=== PATIENT | male | born 1950 | race Caucasian/White ===

== ENCOUNTER → 2017-08-01 11:33 | Outpatient (CLI) | payer OTHER, MEDICARE, SELFPAY ==
--- NOTE | 2017-08-01 11:52 | CT_ITS ---
STUDY: CT ABDOMEN AND PELVIS WITH CONTRAST REASON FOR EXAM: Male, 67 years old. 1 1/2 week history of upper abdominal pain. RADIATION DOSAGE (If Supplied By Facility): CTDIvol = ( 10.62 ) mGy, DLP = ( 717.61 ) mGycm TECHNIQUE: Transaxial images were obtained from the dome of the diaphragm to the symphysis pubis with oral contrast. 100 ml of Isovue 300 contrast was administered. Sagittal and coronal images were reconstructed. Individualized dose optimization techniques were used for this CT. COMPARISON: None. FINDINGS: The visualized lung bases are unremarkable. Coronary artery calcification. Normal liver. Normal gallbladder and extrahepatic biliary system. Normal spleen. There is atrophy of the pancreas. Increased markings are seen within the peripancreatic fat. This is suggestive of mild degree of pancreatitis. No abnormal fluid collection is seen. Normal bilateral adrenal glands. Normal right kidney. Normal left kidney. Normal visualized stomach. Normal small intestine. There are multiple colonic diverticula consistent with diverticulosis. The appendix is visualized and appears normal. There is diffuse atherosclerotic calcification of the abdominal aorta, without a demonstrated aneurysm. Normal inferior vena cava. Normal retroperitoneum. Mild degree of bladder wall thickening. There is a small umbilical hernia containing fat. There are diffuse degenerative changes of the visualized lumbar spine. CT/Abdomen/Pelvis WITH Contrast IMPRESSION: Atrophy of the pancreas with increased peripancreatic markings suggestive of a mild degree of uncomplicated pancreatitis. Electronically Signed: Richard Wilkinson MD at 13:54 EDT Tel [phone], Service support ,
[2017-08-01] MEDS: MethylPREDNISolone 125 MG/2 ML Vial 60 MG IV (12:09)
[2017-08-01 12:26] LABS: CREATININE FINGERSTICK 0.9 mg/dL (0.70-1.30)
== END ==
PROVIDERS: Family Provider Family Medicine; PCP Family Medicine; Visit Provider Family Medicine
DX: R10.10 Upper abdominal pain, unspecified (principal)
CPT/HCPCS: 74177; Q9967; A4216

== ENCOUNTER → 2017-08-02 09:05 | Outpatient (CLI) | payer OTHER, MEDICARE, SELFPAY ==
[2017-08-02 09:53] LABS: Absolute Lymphocyte Count 0.99 X10^3/ul (0.83-4.51); Absolute Neutrophil Count 13.7 X10^3/uL (2.0-7.7); Basophil# 0.01 X10^3/uL; Basophil% 0.1 % (0-1); Hematocrit 38.6 % (40-54); Hemoglobin 13.1 g/dl (13.0-16.5); Lymphocyte # 0.99 X10^3/ul (4.0); Lymphocyte % 6.2 % (19-41); Mean Corp Hgb Conc 33.9 g/gl (32-36); Mean Corpuscular Hgb 31.9 pg (27.0-32.0); Mean Corpuscular Volume 93.9 fL (80-94); Mean Platelet Vol. 9.6 fl (6.2-12.0); Monocyte% 7.5 % (0-10); Neutrophil # 13.67 X10^3/uL (2.7-7.7); Neutrophil % 85.9 % (47-70); Platelet Count 297 K/mm3 (150-450); RBC Distribution Width CV 12.1 % (11.6-14.6); RBC Distribution Width SD 40.7 fl (35.1-43.9); Red Blood Count 4.11 M/mm3 (4.6-6.2); White Blood Count 15.9 K/mm3 (4.4-11.0)
[2017-08-02 09:54] LABS: POSITIVE COUNT NO; POSITIVE DIFFERENTIAL NO; POSITIVE MORPHOLOGY NO
[2017-08-02 10:10] LABS: ALB/GLOB Ratio 0.8 RATIO (0.9-2.4); AST(SGOT) 28 U/L (15-37); Alanine Aminotransfer ALT/SGPT 32 U/L (16-61); Albumin, Serum 3.5 g/dL (3.2-5.0); Alkaline Phosphatase 151 U/L (45-117); Amylase 54 U/L (25-115); Anion Gap 12 (5-15); BUN 13 mg/dL (7-18); BUN/Creat Ratio 12.9 RATIO (10-20); Calcium,Total 9.1 mg/dL (8.5-10.1); Chloride 104 mmol/L (98-107); Creatinine, Serum 1.01 mg/dL (0.70-1.30); EST Glomerular Filtration Rate 78 mL/min (>60); Est Glom Filt Rate - Afr Amer 95 mL/min (>60); Globulin 4.4 g/dL (2.2-4.2); Glucose 181 mg/dL (74-106); Lipase 133 U/L (73-393); Protein, Total 7.9 g/dL (6.4-8.2); Sodium Level 138 mmol/L (136-145)
== END ==
PROVIDERS: Family Provider Family Medicine; PCP Family Medicine; Visit Provider Family Medicine
DX: R10.10 Upper abdominal pain, unspecified (principal)
CPT/HCPCS: 36415; 80053; 82150; 83690; 85025

== ENCOUNTER → 2017-09-01 08:33 | Outpatient (CLI) | payer OTHER, MEDICARE, SELFPAY ==
[2017-09-01 10:54] LABS: Hemoglobin A1c 6.9 % (4.2-6.3)
[2017-09-01 11:08] LABS: Cholesterol 170 mg/dL (200); Glucose 115 mg/dL (74-106); High Density Lipoprotein 48 mg/dL; Triglycerides 208 mg/dL; Very Low Density Lipoprotein 42 mg/dL (5-40)
== END ==
PROVIDERS: Family Provider Family Medicine; PCP Family Medicine; Visit Provider Family Medicine
DX: E78.00 Pure hypercholesterolemia, unspecified (principal); R73.01 Impaired fasting glucose
CPT/HCPCS: 36415; 80061; 82947; 83036

== ENCOUNTER → 2017-12-04 10:31 | Outpatient (CLI) | payer OTHER, MEDICARE, SELFPAY ==
[2017-12-04 12:24] LABS: Vitamin D,25 Hydroxy 38.3 ng/mL (29.95-100.01)
[2017-12-04 12:38] LABS: Hemoglobin A1c 6.1 % (4.2-6.3)
[2017-12-04 12:41] LABS: Anion Gap 8 (5-15); BUN 10 mg/dL (7-18); BUN/Creat Ratio 10.5 RATIO (10-20); Calcium,Total 9.8 mg/dL (8.5-10.1); Chloride 105 mmol/L (98-107); Creatinine, Serum 0.96 mg/dL (0.70-1.30); EST Glomerular Filtration Rate 83 mL/min (>60); Est Glom Filt Rate - Afr Amer 101 mL/min (>60); Glucose 119 mg/dL (74-106); Potassium 4.2 mmol/L (3.5-5.1); Sodium Level 141 mmol/L (136-145); Thyroid Stim Hormone (TSH) 1.27 uIU/mL (0.358-3.74)
== END ==
PROVIDERS: Family Provider Family Medicine; PCP Family Medicine; Visit Provider Family Medicine
DX: R73.01 Impaired fasting glucose (principal); I10 Essential (primary) hypertension; M25.50 Pain in unspecified joint
CPT/HCPCS: 36415; 80048; 82306; 83036; 84443

== ENCOUNTER → 2018-06-18 09:42 | Outpatient (CLI) | payer OTHER, MEDICARE, SELFPAY ==
[2018-06-18 12:57] LABS: Anion Gap 6 (5-15); BUN 11 mg/dL (7-18); BUN/Creat Ratio 12.1 RATIO (10-20); Calcium,Total 9.2 mg/dL (8.5-10.1); Chloride 105 mmol/L (98-107); Creatinine, Serum 0.91 mg/dL (0.70-1.30); EST Glomerular Filtration Rate 88 mL/min (>60); Est Glom Filt Rate - Afr Amer 106 mL/min (>60); Glucose 121 mg/dL (74-106); Potassium 3.9 mmol/L (3.5-5.1); Sodium Level 139 mmol/L (136-145)
== END ==
PROVIDERS: Family Provider Family Medicine; PCP Family Medicine; Referring Provider Family Medicine; Visit Provider Family Medicine
DX: I10 Essential (primary) hypertension (principal)
CPT/HCPCS: 36415; 80048

== ENCOUNTER → 2019-03-06 08:51 | Outpatient (CLI) | payer OTHER, MEDICARE, SELFPAY ==
--- NOTE | 2019-03-06 09:19 | BD_ITS ---
STUDY: DUAL ENERGY X-RAY ABSORPTIOMETRY / DXA REASON FOR EXAM: Male, 69 years old. History of osteogenesis imperfecta. Loss of height. TECHNIQUE: Bone Mineral Density (BMD) measurements of lumbar spine and bilateral hips were obtained. COMPARISON: None. FINDINGS: Lumbar Spine (L1-L4): g/cm2 (1.369) / T-score (1.4) / Z-score (1.9) Findings are suggestive of normal bone density with a low fracture risk. Left Femur Total: g/cm2 (0.960) / T-score (-1.0) / Z-score (-0.3) Left Femoral Neck: g/cm2 (0.849) / T-score (-1.7) / Z-score (-0.5) Right Femur Total: g/cm2 (0.948) / T-score (-1.1) / Z-score (-0.4) Right Femoral Neck: g/cm2 (0.886) / T-score (-1.4) / Z-score (-0.2) BD/Dexa Bone Density Study IMPRESSION: The patient is considered osteopenic as outlined below according to World Brian Organization (WHO) criteria with a moderate fracture risk. Reference Information: The T-score is the number of standard deviations above or below the standard which is normal for young adults at their peak bone mineral density. The World Health Organization (WHO) interprets the T-scores as follows: Above -1 Normal bone density Between -1 and -2.5 Osteopenia Equal to / or below -2.5 Osteoporosis As a practical clinical guideline, osteopenia may be graded as follows: Mild -1 through -1.5 Moderate -1.6 through -2.0 Severe -2.1 through -2.4 The Z-score is the number of standard deviations above or below age-matched controls. A Z-score of less than -1.5 would be considered abnormal. References: 1. NIH Osteoporosis and Related Bone Diseases http://www.osteo.org 2. International Society for Clinical Densitometry http://www.iscd.org 3. National Osteoporosis Foundation http://www.nof.org Electronically Signed: Richard Wilkinson, at 9:18 EST , Service support ,
== END ==
PROVIDERS: Family Provider Family Medicine; PCP Family Medicine; Referring Provider Family Medicine; Visit Provider Family Medicine
DX: Q78.0 Osteogenesis imperfecta (principal)
CPT/HCPCS: 77080

== ENCOUNTER → 2019-04-11 10:05 | Outpatient (CLI) | payer OTHER, MEDICARE, SELFPAY ==
[2019-04-11 12:26] LABS: Erythrocyte Sedimentation Rate 18 mm/hr (0-20)
[2019-04-11 13:08] LABS: BUN 11 mg/dL (7-18); EST Glomerular Filtration Rate 89 mL/min (>60); Glucose 125 mg/dL (74-106)
[2019-04-11 13:09] LABS: Anion Gap 9 (5-15); BUN/Creat Ratio 12.2 RATIO (10-20); Calcium,Total 9.3 mg/dL (8.5-10.1); Chloride 106 mmol/L (98-107); Est Glom Filt Rate - Afr Amer 108 mL/min (>60); Potassium 3.9 mmol/L (3.5-5.1); Rheumatoid Factor < 10.0 IU/mL (<15); Sodium Level 140 mmol/L (136-145)
[2019-04-12 13:33] LABS: ANTINUCLEAR ANTIBODIES DIRECT Negative (Negative)
[2019-04-12 17:45] LABS: Hemoglobin A1c 6.5 % (4.2-6.3)
== END ==
PROVIDERS: Family Provider Family Medicine; PCP Family Medicine; Visit Provider Family Medicine
DX: I10 Essential (primary) hypertension (principal); M19.90 Unspecified osteoarthritis, unspecified site
CPT/HCPCS: 36415; 80048; 83036; 85652; 86038; 86140; 86431

== ENCOUNTER → 2019-04-19 07:43 | Outpatient (CLI) | payer OTHER, SELFPAY ==
--- NOTE | 2019-04-19 07:47 | ECHOD_ITS ---
Version 2 Reason For Study: Murmur Procedure This was a 2D Doppler, Color Flow transthoracic echocardiogram. Exam performed in department. Left Ventricle Normal LV size. Mild concentric left ventricular hypertrophy. Left ventricular systolic function is normal. The estimated ejection fraction is 65 %. Stage 1 diastolic dysfunction. LVOT dynamic gradient 100mmhg with valsalva m/sec. No regional wall motion abnormalities noted. Right Ventricle Normal RV size. Normal systolic function. Atria Normal left atrium. Normal right atrium. Mitral Valve Normal mitral valve. Tricuspid Valve Normal tricuspid valve. Mild (1+) tricuspid valve insufficiency. Pulmonary artery systolic pressure is 35 mmHg. Aortic Valve Normal aortic valve. Pulmonic Valve Normal pulmonic valve. Great Vessels Normal aortic root. The pulmonary artery is normal size. Normal inferior vena cava. Pericardium/Pleural No pericardial effusion. MMode/2D Measurements & Calculations LVIDd: 4.0 cm IVSd: 1.2 cm LVOT diam: 1.9 cm LVIDs: 2.5 cm LVPWd: 1.3 cm LVOT area: 2.8 cm2 RVDd: 3.2 cm FS: 36.9 % Ao root diam: 3.0 cm LAV(MOD-bp): 46.1 ml LVAd ap4: 26.2 cm2 LAV(MOD-bp) Indexed: 25.7 ml/m2 EDV(MOD-sp4): 73.0 ml LAV(MOD-sp2): 46.2 ml EDV(sp4-el): 74.5 ml LAV(MOD-sp4): 44.4 ml LVAs ap4: 13.1 cm2 ESV(MOD-sp4): 22.9 ml ESV(sp4-el): 23.5 ml EF(MOD-sp4): 68.6 % EF(sp4-el): 68.5 % SV(MOD-sp4): 50.1 ml SV(sp4-el): 51.0 ml LA A4 area: 16.1 cm2 LA dimension(2D): 3.5 cm RA A4 area: 14.5 cm2 Doppler Measurements & Calculations MV E max richie: 83.8 cm/sec Lat Peak E' Richie: 9.5 cm/sec Med Peak E' Richie: 6.5 cm/sec MV A max richie: 112.1 cm/sec E/E' lat: 8.8 E/E' med: 13.0 MV E/A: 0.75 Ao V2 max: 220.3 cm/sec LV V1 max: 189.2 cm/sec SV(LVOT): 111.6 ml Ao max P.4 mmHg LV V1 max P.3 mmHg Ao V2 mean: 147.2 cm/sec LV V1 mean P.5 mmHg Ao mean P.8 mmHg LV V1 mean: 127.1 cm/sec Ao V2 VTI: 41.7 cm LV V1 VTI: 40.2 cm VITA(I,D): 2.7 cm2 VITA(V,D): 2.4 cm2 PA V2 max: 126.8 cm/sec TR max richie: 270.1 cm/sec TR max P.2 mmHg Interpretation Summary Normal LV size. Mild concentric left ventricular hypertrophy. Left ventricular systolic function is normal. The estimated ejection fraction is 65 %. Stage 1 diastolic dysfunction. LVOT dynamic gradient 100mmhg with valsalva. Ordering Physician: Jeff Worley Referring Physician: Jeff Worley Performed By: Kusum Joya, SYD, RVT
== END ==
PROVIDERS: Family Provider Family Medicine; PCP Family Medicine; Referring Provider Family Medicine; Visit Provider Family Medicine
DX: R01.1 Cardiac murmur, unspecified (principal)
CPT/HCPCS: 93306

== ENCOUNTER → 2019-09-30 10:46 | Outpatient (CLI) | payer OTHER, SELFPAY ==
--- NOTE | 2019-09-30 10:52 | RAD_ITS ---
STUDY: X-RAY - LEFT KNEE REASON FOR EXAM: Male, 69 years old. LEFT KNEE PAIN TECHNIQUE: 4 view(s) of the knee. COMPARISON: Comparison is made with prior examination dated May 15, 2011. FINDINGS: Normal visualized distal femur. Normal visualized proximal tibia and fibula. Normal proximal tibiofibular articulation. There is moderate degenerative arthrosis of the medial femorotibial compartment with moderate joint space narrowing. Normal lateral femorotibial compartment. There is mild degenerative arthrosis of the patellofemoral articulation. There now is evidence of soft tissue ossification in the soft tissues overlying the medial aspect of the distal femoral metaphysis in the suprapatellar region. This may represent myositis ossificans. RAD/Knee 4 or More Views IMPRESSION: Degenerative arthrosis. This has progressed as compared to prior study. Findings suggestive of myositis ossificans. Electronically Signed: Richard Wilkinson, at 12:53 EDT , Service support ,
== END ==
PROVIDERS: PCP Family Medicine; Referring Provider Family Medicine; Visit Provider Family Medicine
DX: M25.562 Pain in left knee (principal)
CPT/HCPCS: 73564

== ENCOUNTER → 2019-10-02 08:44 | Outpatient (CLI) | payer MEDICARE, OTHER, SELFPAY ==
[2019-10-02 10:35] LABS: Anion Gap 7 (5-15); BUN 10 mg/dL (7-18); BUN/Creat Ratio 12.8 RATIO (10-20); Calcium,Total 9.3 mg/dL (8.5-10.1); Chloride 108 mmol/L (98-107); Cholesterol 162 mg/dL (200); Creatinine, Serum 0.78 mg/dL (0.70-1.30); EST Glomerular Filtration Rate 104 mL/min (>60); Est Glom Filt Rate - Afr Amer 126 mL/min (>60); Glucose 100 mg/dL (74-106); High Density Lipoprotein 70 mg/dL; Potassium 4.1 mmol/L (3.5-5.1); Sodium Level 142 mmol/L (136-145); Triglycerides 89 mg/dL; Very Low Density Lipoprotein 18 mg/dL (5-40)
== END ==
PROVIDERS: PCP Family Medicine; Referring Provider Family Medicine; Visit Provider Family Medicine
DX: I10 Essential (primary) hypertension (principal)
CPT/HCPCS: 36415; 80048; 80061

== ENCOUNTER → 2020-01-01 12:29 | Outpatient (CLI) | payer MEDICARE, OTHER, SELFPAY ==
--- NOTE | 2020-01-01 12:31 | CT_ITS ---
STUDY: CT SCAN LOWER EXTREMITY LEFT REASON FOR EXAM: Male, 69 years old. Left knee varus deformity URBANO protocol. RADIATION DOSAGE (If Supplied By Facility): CTDIvol = ( 18.76 ) mGy, DLP = ( 1135.33 ) mGycm. Individualized dose optimization techniques were used for this CT.? TECHNIQUE: Multiple axial tomographic images of the left hip joint, knee joint and ankle joint were obtained. Coronal and sagittal constructions was obtained as well. COMPARISON: Comparison is made with prior radiograph of the left knee dated 09/30/2019. FINDINGS: Imaging of the left hip joint is unremarkable. There is good alignment. No significant joint space narrowing is seen. Minimal degree of the joint space narrowing involving the medial compartment of the knee joint. Small joint effusion. Dense ossification of the anterior soft tissues suggestive of dermatomyositis. Imaging of the ankle joint was obtained. No significant abnormality is seen. CT/Extremity Lower without Contra IMPRESSION: Mild degree of joint space narrowing involving the medial compartment of the knee joint. Findings suggestive of a myositis ossificans in the soft tissues overlying the medial aspect of the knee joint. Electronically Signed: Richard Wilkinson, at 13:16 EDT , Service support ,
== END ==
PROVIDERS: PCP Family Medicine; Referring Provider Specialist; Visit Provider Specialist
DX: M21.162 Varus deformity, not elsewhere classified, left knee (principal)
CPT/HCPCS: 73700

== ENCOUNTER 2020-01-22 05:31 | Day surgery (SDC) | payer MEDICARE, OTHER, SELFPAY ==
[2020-01-01 13:00] LABS: Absolute Lymphocyte Count 1.72 X10^3/uL (0.83-4.51); Basophil# 0.05 X10^3/uL; Basophil% 0.4 % (0-1); Eosinophil# 0.51 X10^3/uL; Eosinophils% 4.5 % (0-5); Hematocrit 42.9 % (40-54); Hemoglobin 14.3 g/dL (13.0-16.5); Lymphocyte # 1.72 X10^3/ul (4.0); Lymphocyte % 15.3 % (19-41); Mean Corp Hgb Conc 33.3 g/dL (32-36); Mean Corpuscular Hgb 31.6 pg (27.0-32.0); Mean Corpuscular Volume 94.9 fL (80-94); Mean Platelet Vol. 9.7 fl (6.2-12.0); Monocyte# 0.97 X10^3/uL; Monocyte% 8.6 % (0-10); NRBC Flagged by Analyzer 0 % (0-5); Neutrophil # 7.97 X10^3/uL (2.7-7.7); Neutrophil % 70.8 % (47-70); Platelet Count 303 K/mm3 (150-450); RBC Distribution Width CV 11.7 % (11.6-14.6); Red Blood Count 4.52 M/mm3 (4.6-6.2); White Blood Count 11.3 K/mm3 (4.4-11.0)
[2020-01-01 13:25] LABS: Anion Gap 8 (5-15); BUN 9 mg/dL (7-18); BUN/Creat Ratio 11.4 RATIO (10-20); Calcium,Total 9.6 mg/dL (8.5-10.1); Chloride 104 mmol/L (98-107); Creatinine, Serum 0.79 mg/dL (0.70-1.30); EST Glomerular Filtration Rate 103 mL/min (>60); Est Glom Filt Rate - Afr Amer 125 mL/min (>60); Glucose 131 mg/dL (74-106); Potassium 3.9 mmol/L (3.5-5.1); Sodium Level 138 mmol/L (136-145)
--- NOTE | 2020-01-01 22:02 | HP.PCM_ITS ---
History and Physical History and Physical [facility] Patient Name: Yasir Montiel : 1950 From: MARQUIS MARIA PA-C DATE OF SURGERY: 01/22/2020 SCHEDULED PROCEDURE: left total knee arthroplasty HISTORY OF PRESENT ILLNESS: Preoperative history and physical exam was performed on January 01, 2020. This is a 69-year-old male who is been having ongoing pain for the past 6 months. His pain can reach 6/10 with activities. His pain as being constant. Pain is increased with going up and down stairs, sitting, walking. He has pain over the medial joint line. Pain does not wake him at night. Patient has fallen due to his knee pain. Patient has attempted home exercises as well as [id number] Aleve and tramadol with minimal relief. He had a previous corticosteroid injection which only gave him 2 days of relief. Patient has also attempted durolane injection with no relief in symptoms. He has attempted bracing with no relief in symptoms. Patient has had a previous left quadriceps tendon repair by Dr. Darin Ba patient currently denies any chest pain, shortness of breath, fevers chills, recent infections. Patient has a medical history pertinent for osteogenesis imperfecta, hypercholesterolemia and hypertension. We are obtaining surgical clearance from his primary care physician Dr. Worley. After failing conservative measures and discussing treatment options with Dr. Brooks Longoria, the patient does wish to proceed with a left total knee arthroplasty. REVIEW OF SYSTEMS: ROS: Const: Denies anorexia, anxiety, change in appetite, fever and weight change,hard of hearing, and vision problems. CV: Denies chest pain, heart murmur, irregular heartbeat and peripheral vascular disease. Resp: Denies asthma, cough, pneumonia, sleep apnea, SOB, tuberculosis and wheezing. GI: Reports heartburn, but denies constipation, diarrhea, nausea, bloody stools and vomiting, and difficulty swallowing. : Urinary: denies incontinence. Musculo: Reports leg swelling, limp and trouble walking, but denies weakness. Skin: Reports tattoo, but denies Raynaud's and history of shingles. Neuro: Denies ambulatory dysfunction, dizziness, numbness/tingling and tremor. Psych: Denies anxiety, depression, insomnia, mental illness and stress. [place]/Lymph: Denies anemia, bleeding/bruising tendency and past transfusion. Reviewed, no changes. PAST MEDICAL HISTORY: Advance Care Plan: Other Directive, LIVING WILL Effective Date: 01/09/2015 PMH: Medical Problems: Osteogenesis Imperfecta Heart Murmur - NOTED IN THE PAST Hypercholesterolemia, High Blood Pressure Accidents: Fracture - 40-45 fx over life, collarbone; ribs; wrist 5x; rest fingers & toes Surgical Hx: Laminectomy - 12 years [facility] Microdiscectomy l4-l5 LT Quadriceps Repair - (05/19/2011) [email or web address] RT CTR - (05/10/2012) EDGAR @ [facility] Knee Arthroscopy RT - (01/01/2015) [email or web address] Knee Replacement RT - (06/04/2015) [email or web address] Anesthesia Complications: None Assistive Devices: Glasses - reading Reviewed, no changes. SOCIAL HISTORY: SH: Marital: .Occupation: Retired.Work Status: Retired.Hand Dominance: Right- Handed. Personal Habits: Smoking: Patient has never smoked.Cigarette Use: Never.Alcohol: Occasionally.Drug Use: Denies Use.Enjoy Exercising: Exercises 1-3 x/month. Reviewed, no changes. VITALS: Ht: 63 Wt: 157lb Wt k.215 BMI: 27.8 BP: 173/85 Pulse: 86 Resp: 18 T: 97.2 T: 36.2C ALLERGIES: Iodine MEDICATIONS: Oxycodone HCL 5 mg 1-2 tab by mouth every 4 hours, Meloxicam 7.5 mg 2 tablets by mouth in pre-op area, Promethazine HCL 12.5 mg 1-2 tablets by mouth every 6 hours, Famotidine 20 mg 1 by mouth every day, Trazodone HCL 2-3 times weekly, Losartan Potassium 25 mg 1 by mouth every day, Atorvastatin Calcium 20 mg 1po qday PRE-OP EXAM: General appearance:NORMAL Other: Eyes: Conjunctivae and lids: NORMAL Pupils: ERR Ears, Nose, Mouth, and Throat: NORMAL Other: Inspection of lips, teeth and gums: NORMAL Other: Neck: Examination of neck: no masses noted. Respiratory: Assessment of respiratory effort: NORMAL Other: Auscultation of lungs: clear to auscultation no wheezes, rhonchi or rales. Cardiovascular: Auscultation of heart: regular rate and rhythm, positive systolic murmur Exam of carotid arteries: NORMAL Other: Gastrointestinal: Exam of abdomen: soft, nontender, nondistended bowel sounds present. PHYSICAL EXAMINATION: She does walk with an antalgic gait. Left knee is cool to touch without edema or signs of infection. Previous incision from a quadriceps repair is well- healed. Range of motion: Lacks 10 of full extension to 125 flexion. He has varus alignment which is correctable on exam. There is varus to palpation over the medial joint line. He has tenderness to palpation over the quadriceps at the proximal insertion. Negative patella compression exam. Sensation intact to light touch. IMAGING STUDIES: Previous x-rays of the left knee reveal varus alignment with medial joint space narrowing, subchondral sclerosis, osteophyte formation consistent with grade 3-4 osteoarthritis. There is calcifications of the proximal quadriceps tendon at the site of repair. IMPRESSION: 1. Left knee osteoarthritis 2. Previous left knee quadriceps repair 2011 3. Hypertension 4. Osteogenesis imperfecta 5. Hypercholesterolemia PLAN: Dr. Brooks Longoria did discuss and review with the patient all treatment options including surgical versus nonsurgical options. Patient does wish to proceed with the above-stated procedure. Potential risks, benefits, and complications of the procedure were discussed in detail including but not limited to , infection, nerve and blood vessel damage, persistent pain, numbness, tingling, paresthesias, blood clot, pulmonary embolism, and requirement for possible further surgery. The patient expressed full understanding and has no further questions for the doctor. Patient does agree to proceed with the above-stated procedure and has signed the surgery consent form. We discussed the current risks associated with COVID 19. This does include the risk of exposure while in the hospital. Patient was reassured local hospitals have low infection rates and are taking all necessary precautions to avoid exposure to patients. In addition, we discussed strategies that can be used to help limit exposure including those that limit the patient's time in the hospital. Also using strategies to limit the patient's need for continued inpatient services after being discharged from the hospital. Patient was notified that we will need to comply with any screening or testing the hospital wishes to perform or that surgery may be delayed for any positive results. This dictation was created using voice recognition software. Phonetic and/or grammatical errors may exist. ___ I have re-examined the patient. There are no clinical changes since date of exam. ___ See progress notes for changes. ___ Dictated on admission Date: Time: Signature:
[2020-01-02 09:32] LABS: Magnesium 1.9 mg/dL (1.6-2.6)
--- NOTE | 2020-01-15 09:47 | EKG12_ITS ---
Test Reason : PRE OP Blood Pressure : / mmHG Vent. Rate : 092 BPM Atrial Rate : 092 BPM P-R Int : 168 ms QRS Dur : 086 ms QT Int : 368 ms P-R-T Axes : 062 055 065 degrees QTc Int : 455 ms Normal sinus rhythm Normal ECG Confirmed by HAYES MAYER, ROYAL ([id number]), food editor JOLANTA WISE ([id number]) on 01/16/2020 8:14:21 AM Referred By: Brooks Longoria Confirmed By:ROYAL KOO MD
[2020-01-22] VITALS (10 sets, daily range): BP systolic 75–139; BP diastolic 45–68; PULSE 71–89; RESP 14–18; TEMP 36.4–37.4; O2SAT 16–100; BMI 25.2
[2020-01-22 06:15] LABS: Bedside Glucose 226 mg/dL (70-110)
[2020-01-22] MEDS: Insulin Lispro 100 UNIT/ML INSULN.PEN SC (06:22)
[2020-01-22] MEDS: Scopolamine 1mg/72hr Patch 1 PATCH TRANSDERM. (06:24)
[2020-01-22] MEDS: Lactated Ringers 1,000 ML 999 ML IV ×2 (06:28→10:14)
[2020-01-22] MEDS: Gabapentin 600 MG Tablet PO (06:29)
[2020-01-22] MEDS: Celecoxib 200 MG Capsule 400 MG PO (06:29)
[2020-01-22] MEDS: Acetaminophen 500 MG Tablet 1000 MG PO (06:29)
[2020-01-22] MEDS: Cefazolin 2 GM in 0.9% Normal Saline 100 ML IV (07:22)
--- NOTE | 2020-01-22 07:30 | KNEE_PTH ---
PATIENT: ANITA VIEYRA LOC: [facility] [place] U#:[id number] AGE/SX: 70/M ROOM: RE01/22/[address]: Dr. Brooks Longoria MD : 1950 BED: DIS: 01/22/2020 SPEC #: [id number] RECD: 01/22/20 10:30 STATUS: LOCO MORENA #: [id number] ANNEMARIE: 01/22/20 07:[address]: Brooks Longoria DEPT: SURGICAL PATHOLOGY RECD BY: Kip Gonzalez ENTERED: 01/22/20 11:07 SP TYPE: TOTAL KNEE OTHR DR: MD Iker Bhat PA-C Tissues: Knee, NOS Procedures: Decalcification bone/plaque Surgery Specimen Level IV HEADER OPERATION: ERAS, total knee replacement robotic arm assist PRE-OP DIAGNOSIS: Left knee osteoarthritis TISSUE SUBMITTED: Left knee ossicle MICROSCOPIC DIAGNOSIS Left knee ossicle, excision: Osseocartilaginous tissue consistent with ossicle. AM:macey 01/27/20 MICROSCOPIC DESCRIPTION Slides are reviewed. GROSS DESCRIPTION Received in fixative is one container labeled with the patient's name and designated left knee ossicle. The specimen consists of an irregular fragment of light bui bone measuring 4.4 x 2.2 x 1 cm. Hat Blocking Machine Operator sections are submitted in one cassette after decalcification. / AM:macey 01/22/20 TC:5 CPT: 88042, 12056
[2020-01-22] MEDS: dexAMETHasone 10 MG/ML Vial IV (07:51)
[2020-01-22] MEDS: Lactated Ringers 1,000 ML 125 ML IV (08:30)
--- NOTE | 2020-01-22 08:57 | OP.PCM_ITS ---
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 Left robotic assisted minimally invasive total knee replacement. 2. Left knee excision of bony ossicle 2 cm x 4 cm Description of Surgical Findings:: Stable knee with good patella tracking In the medial supra patellar tissues there was a 2 cm x 4 cm bony ossicle that was completely excised. print project manager: Izzy Eduardo Type of Anesthesia:: Spinal Anesthesiologist: Mack Snyder Special Medications: 2 g Ancef, 1 g TXA at incision, 1 g TXA closure, 10 mg Decadron, joint cocktail (5 mg Duramorph, 30 mL of 0.5% Ropivicaine, 1000 units of epinephrine, 30 mg of Toradol) Specimen's removed: Bony cuts, bony ossicle Estimated Blood Loss (mL): 75 Fluids Replaced: 1400 mL crystalloid Description of Procedure: Implants used: 1. Gretta size 3 triathlon cruciate retaining distal femoral press-fit component 2. Gretta size 4 press-fit tritanium tibial baseplate 3. Gretta X3 10 mm CS polyethylene 4. [place] X3 32 mm asymmetric patella Brief history operative indications: 70-year-old m with history of left knee osteoarthritis with radiographic findings with loss of joint space, osteophyte formation and subchondral sclerosis. Failed conservative measures as mentioned in the H&P. Discussion of total knee arthroplasty as well as risk and benefits were discussed the patient including but not limited to blood loss, DVTs, PEs, neurovascular damage, general risk of anesthesia including loss of life, and stiffness or instability were discussed with patient. Patient demonstrated understanding and was able to sign informed consent. Procedure: On the date of procedure patient's left lower extremity was marked in the preoperative area. The patient was then taken back to the operating room where the patient was placed on the table in the supine position. All bony prominences were identified a well-padded. Anesthesia assumed control of the C-spine and airway and remained controlled throughout the remainder of the procedure. A tourniquet was placed on the left upper thigh and the leg was prepped in a sterile fashion. The surgeon then scrubbed at this time .Upon reentering the room left lower extremity was draped in a standard orthopedic fashion. A timeout was then called and everyone agreed upon the side, the site, the procedure to be performed, patient's identity and antibiotics given. Esmarch bandage was used to exsanguinate the extremity and the tourniquet was placed up to 250 mmHg with the knee in flexion. A midline skin incision was made and sharp dissection was taken down through skin subcutaneous tissue and fat. The standard medial parapatellar incision was made and the patella was subluxed laterally. An Appropriate deep MCL release was done and the fat pad was resected. Our attention was then directed to the patella. The patella was everted and a flat resection was made. The knee was then flexed up in 2 femoral pins were placed inside the incision and 2 tibial pins were placed outside the incision in the medial tibia bicortically. Once this was completed the 2 checkpoints in the femur and tibia were placed. Knee was then flexed up and the bony landmarks were registered. Once this was completed knee was taken through range of motion and manually stressed allowing us to a plan for an appropriate tibial cut. The robotic arm was brought into the field sterilely and checkpoint and saw were registered. Based on the patient's deformity the tibial cut was made in 2 degrees varus. At this time the tensioner was then placed in the joint and ligament tension was checked at 90 degrees and full extension. Based on the patient's ligamentous tension appropriate adjustments were made to the operative plan and ligament releases were done. Once we were happy with our operative plan with balanced flexion and extension gaps our attention was directed to the femur. The robot was brought into the field sterilely and registered. Posterior condylar cuts, anterior chamfer cuts and anterior cuts were appropriately made for a size 3 femur. When these were completed the saws were switched out in the distal femoral and posterior chamfer cuts were made. Protecting the soft tissue throughout this time. A size 4 tibial base plate was selected. the knee was flexed to 90 degrees and the soft tissues and posterior osteophytes were removed from the joint. 40 cc of the periarticular injection was injected into the posterior medial corner of the joint. The appropriate trials were then placed on the femur and tibia. A trial polyethylene was trialed to ensure proper balancing and stability of the knee. The appropriate tibial internal rotation was then marked with a bovie. Our attention was then directed to the patella. The lug holes were drilled and the patella trial was placed. Patellar tracking was checked and deemed appropriate. Once we were happy lug holes were drilled for the femur and trial components were removed. the tibia was subluxed and pinned into place and the keel was punched and drilled appropriately. Final components were verified and opened, and cement was mixed in a vacuum. [employer] Simplex cement was used. The wound was copiously irrigated with normal saline. When the cement was ready the components were impacted into place starting with the tibia, femur and finally cementing the patella. The trial poly component was placed and the knee was placed in full extension. All excess cement was removed in the process. Once the cement had cured the tracking, alignment and balance were verified and a size 10 mm CS polyethylene component was placed. The closur e of the bony ossicle was explored. We carefully dissected out of the soft tissue envelope careful not to disrupt the extensor mechanism and retinacular repair. It was 2 cm x 4 cm. Once the final components were placed an Irrisept lavage was performed and the wound was copiously irrigated with normal saline solution and the periarticular injection was given. The wound was closed in a layer castano fashion using #1 vicryl interrupted sutures for the arthrotomy, 2-0 interrupted Vicryl suture for the subcuticular layer and jose for final skin closure. A sterile compressive dressing was then placed. The patient was then awakened from anesthesia, transferred to the [facility] and transferred to the PACU for recovery. Post op plan DVT ppx: ASA 81mg BID, thigh high compression stockings Follow up: in office in 2 weeks for wound check PT: to start POD #0 at hospital, outpatient PT should be arranged. Due to the complexity of this case robotic arm was used to assist in the surgery to improve accuracy and clinical outcomes. - Complications No intraoperative complications - Admit VTE Documentation VTE Present on Admission: No VTE Mechan Device Prophylaxis: SCD's, Thigh High STAR Hose VTE Pharm Prophylaxis ordered?: Yes
[2020-01-22 09:40] LABS: Bedside Glucose 125 mg/dL (70-110)
--- NOTE | 2020-01-22 09:44 | RAD_ITS ---
STUDY: X-RAY - LEFT KNEE REASON FOR EXAM: Postop left total knee arthroplasty. TECHNIQUE: 2 view(s) of the knee. COMPARISON: Radiographs 09/30/2019. FINDINGS: There is a left total knee arthroplasty without evidence of complication. There is postoperative gas in the knee joint and soft tissues. There are overlying skin jose. There are soft tissue ossifications in the suprapatellar region. There are vascular calcifications. RAD/Knee 1 or 2 Views IMPRESSION: Uncomplicated left total knee arthroplasty. Electronically Signed: Tarik Marcelo MD at 10:19 EDT Tel , Service support ,
[2020-01-22] MEDS: Cefazolin 1 GM/50 ML BAG IV (11:30)
[2020-01-22] MEDS: oxyCODONE 5 MG Tablet PO (11:49)
== END 2020-01-22 13:45 | disposition home or self-care (01) ==
LOC: SDC 05:32 → AC 05:32
PROVIDERS: Anesthesiology; PCP Family Medicine; Referring Provider Specialist; Visit Provider Specialist
PROC: 0SRD0JZ Replacement of Left Knee Joint with Synthetic Substitute, Open Approach (ICD-10-PCS; CPT 27447; principal; 2020-01-22 07:00)
DX: M17.32 Unilateral post-traumatic osteoarthritis, left knee (principal); M61.9 Calcification and ossification of muscle, unspecified; Q78.0 Osteogenesis imperfecta; E78.00 Pure hypercholesterolemia, unspecified; I10 Essential (primary) hypertension; Z79.1 Long term (current) use of non-steroidal anti-inflammatories (NSAID); Z79.899 Other long term (current) drug therapy; Z88.8 Allergy status to other drugs, medicaments and biological substances; Z96.652 Presence of left artificial knee joint
CPT/HCPCS: 01402; 27447; 64447; 36415; 73560; 80048; 82962; 83735; 85025; 87081; 87635; 88305; 88311; 93005; 97162; 97166; C1776; C9803; J7120; U0003

== ENCOUNTER → 2020-01-24 11:05 | Outpatient (CLI) | payer MEDICARE, OTHER, SELFPAY ==
[2020-01-22 05:59] VITALS: BMI 25.2
--- NOTE | 2020-01-24 11:09 | VDLE_ITS ---
Reason For Study: PAIN LLE Procedure LEFT This is a venous duplex using B-mode, color GSV is normal. flow and spectral Doppler. CFV is compressible, spontaneous, phasic, Exam performed in department. competent, and demonstrates normal A preliminary report was called and/or faxed augmentation. to Kerry. FV is compressible, spontaneous, phasic, competent and demonstrates normal augmentation. POP V is compressible, spontaneous, phasic, competent and demonstrates normal augmentation. T/P Trunk is compressible. PTV is compressible. LT PerV is compressible. Interpretation Summary Deep veins of the left lower extremity are patent and compressible segmentally. There is no evidence of left lower extremity deep vein thrombosis. Valvular competence appears intact within the proximal deep venous system on the left . The left great saphenous vein appears patent and compressible segmentally. Ordering Physician: Bernabe Payne Referring Physician: Jeff Worley Performed By: Juli Duarte RVT and Student
== END ==
PROVIDERS: PCP Family Medicine; Referring Provider Physician Assistant Surgical; Visit Provider Physician Assistant Surgical
DX: M79.662 Pain in left lower leg (principal)
CPT/HCPCS: 93971

== ENCOUNTER → 2020-01-31 11:00 | Outpatient (CLI) | payer MEDICARE, OTHER, SELFPAY ==
[2020-01-22 05:59] VITALS: BMI 25.2
--- NOTE | 2020-01-31 11:05 | VDLE_ITS ---
Reason For Study: PAIN Procedure LEFT Exam performed in department. GSV is normal. A preliminary report was called and/or faxed CFV is compressible, spontaneous, phasic, to DR LONGORIA. competent, and demonstrates normal augmentation. FV is compressible, spontaneous, phasic, competent and demonstrates normal augmentation. POP V is compressible, spontaneous, phasic, competent and demonstrates normal augmentation. T/P Trunk is compressible. PTV is compressible. LT PerV is compressible. Interpretation Summary Deep veins of the left lower extremity are patent and compressible segmentally. There is no evidence of left lower extremity deep vein thrombosis. Valvular competence appears intact within the proximal deep venous system on the left . The left great saphenous vein appears patent and compressible segmentally. Ordering Physician: Brooks Longoria Referring Physician: BARBARA THOMAS Performed By: Bita Mcmillan, SYD, RVT
== END ==
PROVIDERS: PCP Family Medicine; Referring Provider Specialist; Visit Provider Specialist
DX: M79.662 Pain in left lower leg (principal)
CPT/HCPCS: 93971

== ENCOUNTER → 2020-07-03 13:54 | Outpatient (CLI) | payer MEDICARE, OTHER, SELFPAY ==
[2020-01-22 05:59] VITALS: BMI 25.2
--- NOTE | 2020-07-03 13:57 | RAD_ITS ---
STUDY: X-RAY - LEFT SHOULDER REASON FOR EXAM: Male, 70 years old. Left shoulder pain. TECHNIQUE: 2 view(s) of the shoulder on 4 images. COMPARISON: None. FINDINGS: Generalized osteopenia. Osteoarthrosis of the glenohumeral and acromioclavicular joints. Normal acromion. Sclerosis and cystic change of the greater tuberosity of the humeral head. The soft tissue structures are unremarkable. Normal visualized pulmonary apex. RAD/Shoulder min 2 Views IMPRESSION: Osteopenia with osteoarthritic changes. No acute finding. Electronically Signed: Yasir Herron MD at 15:47 EDT , Service support ,
--- NOTE | 2020-07-03 13:58 | RAD_ITS ---
STUDY: X-RAY - RIGHT SHOULDER REASON FOR EXAM: Male, 70 years old. Shoulder pain. TECHNIQUE: 2 view(s) of the shoulder on 3 images. COMPARISON: None. FINDINGS: Generalized osteopenia. Moderate arthrosis of the glenohumeral joint. Arthrosis of the acromioclavicular joint. Subacromial spur. Sclerosis of the greater tuberosity of the humeral head. The soft tissue structures are unremarkable. Normal visualized pulmonary apex. RAD/Shoulder min 2 Views IMPRESSION: Osteopenia with osteoarthritic changes of the glenohumeral and acromioclavicular joints. Subacromial spur. Electronically Signed: Yasir Herron MD at 15:46 EDT , Service support ,
== END ==
PROVIDERS: PCP Family Medicine; Referring Provider Family Medicine; Visit Provider Family Medicine
DX: M25.511 Pain in right shoulder (principal); M25.512 Pain in left shoulder
CPT/HCPCS: 73030

== ENCOUNTER 2022-10-25 16:44 | Emergency (ER) | payer MEDICARE, OTHER, SELFPAY ==
[2022-10-25 16:47] VITALS: BP 162/70; PULSE 710; RESP 18; TEMP 36.1; O2SAT 98; BMI 27.4
--- NOTE | 2022-10-25 16:58 | EKG12_ITS ---
Test Reason : TRAUMA Blood Pressure : / mmHG Vent. Rate : 070 BPM Atrial Rate : 070 BPM P-R Int : 182 ms QRS Dur : 080 ms QT Int : 398 ms P-R-T Axes : 059 009 050 degrees QTc Int : 429 ms Normal sinus rhythm Normal ECG Confirmed by ROYAL KOO MD ([id number]), technical writer and editor BRANDEE JENSEN ([id number]) on 10/26/2022 10:26:11 AM Referred By: HÉCTOR Confirmed By:ROYAL KOO MD
--- NOTE | 2022-10-25 17:00 | CT_ITS ---
STUDY: CT CHEST, ABDOMEN T PELVIS WITHOUT CONTRAST REASON FOR EXAM: Male, 72 years old. trauma-FALL WITH BRITTLE BONE DISEASE RADIATION DOSAGE (If Supplied By Facility): CTDIvol = ( 15.46 ) mGy, DLP = ( 1228.22 ) mGycm TECHNIQUE: Transaxial imaging was performed without the administration of intravenous contrast material. Individualized dose optimization techniques were used for this CT. COMPARISON: Chest x-ray November 25, 2010. CT abdomen and pelvis August 01, 2017. FINDINGS: CHEST The lungs are normal. There is no demonstrated pleural abnormality. Calcific coronary artery disease. Normal mediastinum. Normal hilar regions. Normal unenhanced pulmonary arteries. Normal aorta arch and descending thoracic aorta. Moderate dextroconvex scoliosis. Spondylosis and multilevel vacuum disc phenomena. Possible old fracture of the xiphoid process of the sternum. There is no demonstrated abnormality of the visualized upper abdomen. ABDOMEN The visualized lung bases are unremarkable. Normal liver. Normal gallbladder and extrahepatic biliary system. Normal spleen. Fatty atrophy of the pancreas. Normal bilateral adrenal glands. Normal right kidney. Normal left kidney. Small hiatal hernia. Normal small intestine. Colonic diverticulosis. The appendix is visualized and appears normal. Normal abdominal aorta. Calcified plaque along the aorta and its branches. Normal retroperitoneum. Normal abdominal wall. Comminuted acetabular fracture on the right with protrusio. Pelvic sidewall hematoma on the right displaces the bladder. Fractures of the superior and inferior pubic rami noted on the right. PELVIS Normal urinary bladder. Normal visualized small intestine. Normal visualized colon. There is no pelvic fluid. There is no pelvic lymphadenopathy or mass lesion. Normal visualized pelvic arteries. Normal abdominal wall. CT/CT Chest, Abd, Pelvis WO Cont IMPRESSION: Right pelvic fractures as above. Right pelvic sidewall hematoma. Electronically Signed: Sixto Austin MD at 18:47 EDT Reading Location ID and State: [address] [place] [address] , Service support ,
--- NOTE | 2022-10-25 17:01 | CT_ITS ---
STUDY: CT CERVICAL SPINE WITHOUT CONTRAST REASON FOR EXAM: Male, 72 years old. trauma RADIATION DOSAGE (If Supplied By Facility): CTDIvol = ( 19.75 ) mGy, DLP = ( 429.89 ) mGycm TECHNIQUE: High resolution transaxial imaging was performed without contrast material. Sagittal and coronal images were reconstructed. Individualized dose optimization techniques were used for this CT. COMPARISON: None FINDINGS: Normal craniovertebral junction. Normal anterior atlantoaxial articulation. Normal odontoid process. Normal cervical lordosis. Normal vertebral bodies and posterior osseous elements. C2-3: Normal endplates. Normal disc height and morphology. Normal central canal and intervertebral neuroforamina. C3-4: Normal endplates. Normal disc height and morphology. Normal central canal and intervertebral neuroforamina. C4-5: Spondylitic endplates. Decreased disc height and morphology. Normal central canal and narrowed intervertebral neuroforamina. C5-6: Spondylitic endplates. Decreased disc height and morphology. Normal central canal and narrowed intervertebral neuroforamina. C6-7: Spondylitic endplates. Decreased disc height and morphology. Normal central canal and narrowed intervertebral neuroforamina. C7-T1: Spondylitic endplates. Decreased disc height and morphology. Normal central canal and intervertebral neuroforamina. Normal visualized soft tissue structures. CT/Spine Cervical without Contras IMPRESSION: No fracture Electronically Signed: Sixto Austin MD at 18:29 EDT ,
--- NOTE | 2022-10-25 17:01 | CT_ITS ---
STUDY: CT BRAIN WITHOUT CONTRAST REASON FOR EXAM: Male, 72 years old. trauma. BRITTLE BONE RADIATION DOSAGE (If Supplied By Facility): CTDIvol = ( 47.06 ) mGy, DLP = ( 925.62 ) mGycm TECHNIQUE: Transaxial CT imaging of the brain was performed without administration of intravenous contrast material. Individualized dose optimization techniques were used for this CT. COMPARISON: No relevant priors. FINDINGS: Metallic radiodensity noted subcutaneously superior and medial to the right orbit. Normal calvarium. Intracranial atherosclerosis. Normal size ventricles and extra-axial spaces for the patient''s age. Normal white matter tracts of the cerebral hemispheres. Normal basal ganglia and thalami. Normal brainstem. Normal cerebellum. There is no intracranial hemorrhage. There are no findings of an acute ischemic infarction. Normal visualized paranasal sinuses. CT/Brain/Head without Contrast IMPRESSION: Subcutaneous Metallic foreign body near the right eye requires clinical correlation. No acute intracranial disease. Electronically Signed: Sixto Austin MD at 18:25 EDT ,
[2022-10-25] MEDS: Ondansetron 4 MG/2 ML Vial IV (17:21)
[2022-10-25] MEDS: Morphine 4 MG/ML Syringe IV ×2 (17:21→20:26)
[2022-10-25] MEDS: 0.9% Normal Saline 1,000 ML 999 ML IV (17:21)
[2022-10-25 17:42] LABS: Absolute Lymphocyte Count 1.16 X10^3/uL (0.83-4.51); Absolute Neutrophil Count 7.9 X10^3/uL (2.0-7.7); Basophil# 0.05 X10^3/uL; Basophil% 0.5 % (0-1); Eosinophil# 0.18 X10^3/uL; Eosinophils% 1.8 % (0-5); Hematocrit 38.9 % (40-54); Hemoglobin 13.6 g/dL (13.0-16.5); Lymphocyte # 1.16 X10^3/ul (0.83-4.51); Lymphocyte % 11.5 % (19-41); Mean Corpuscular Hgb 32.8 pg (27.0-32.0); Mean Corpuscular Volume 93.7 fL (80-94); Mean Platelet Vol. 9.5 fl (6.2-12.0); Monocyte# 0.77 X10^3/uL; Monocyte% 7.6 % (0-10); NRBC Flagged by Analyzer 0 % (0-5); Neutrophil # 7.87 X10^3/uL (2.7-7.7); Platelet Count 208 K/mm3 (150-450); RBC Distribution Width CV 11.9 % (11.6-14.6); RBC Distribution Width SD 40.1 fl (35.1-43.9); Red Blood Count 4.15 M/mm3 (4.6-6.2); White Blood Count 10.1 K/mm3 (4.4-11.0)
--- NOTE | 2022-10-25 17:45 | RAD_ITS ---
STUDY: X-RAY - LEFT TIBIA AND FIBULA REASON FOR EXAM: Male, 72 years old. pain TECHNIQUE: 2 view(s) of the tibia and fibula were obtained. COMPARISON: None. FINDINGS: Normal visualized tibia. Normal visualized fibula. 2 screw holes mid tibia. Total knee arthroplasty. Vascular calcifications. Fracture inferior pole of the patella, age indeterminate. The soft tissue structures are unremarkable. RAD/Tibia & Fibula 2 Views IMPRESSION: Fracture inferior pole patella, age indeterminate versus ossification of the quadriceps tendon. Total knee arthroplasty. Electronically Signed: Sixto Austin MD at 18:38 EDT ,
--- NOTE | 2022-10-25 17:45 | RAD_ITS ---
STUDY: X-RAY - PELVIS AND RIGHT HIP REASON FOR EXAM: Male, 72 years old. trauma TECHNIQUE: 3 views of the pelvis and hip. COMPARISON: None. FINDINGS: There is a non-specific bowel gas pattern. Normal visualized soft tissue structures. Acetabular fracture and acetabular protrusio on the right. Normal bilateral iliac wings, sacroiliac joints and visualized sacrum. Normal bilateral superior and inferior pubic rami. Normal pubic symphysis. Normal bilateral ischial tuberosities. Normal visualized femoral head. RAD/HIP, UNI W/ Pelvis 2-3 Views IMPRESSION: Acetabular fracture and protrusio on the right Electronically Signed: Sixto Austin MD at 18:34 EDT ,
--- NOTE | 2022-10-25 17:45 | RAD_ITS ---
STUDY: X-RAY - RIGHT RADIUS AND ULNA REASON FOR EXAM: Male, 72 years old. pain TECHNIQUE: 2 view(s) of the forearm. COMPARISON: None. FINDINGS: There is no demonstrated soft tissue swelling. Linear lucency radial head. Normal visualized ulna. Degenerative changes noted in the wrist. RAD/Forearm 2 Views IMPRESSION: Probable nondisplaced radial head fracture. Recommend dedicated elbow films. Electronically Signed: Sixto Austin MD at 18:32 EDT ,
[2022-10-25 17:49] LABS: Anion Gap 9 (5-15); BUN 8 mg/dL (7-18); BUN/Creat Ratio 8.7 RATIO (10-20); Calcium,Total 9.3 mg/dL (8.5-10.1); Chloride 107 mmol/L (98-107); Creatinine, Serum 0.92 mg/dL (0.70-1.30); EST Glomerular Filtration Rate 86 mL/min (>60); Est Glom Filt Rate - Afr Amer 104 mL/min (>60); Glucose 102 mg/dL (74-106); Potassium 3.5 mmol/L (3.5-5.1); Sodium Level 137 mmol/L (136-145)
--- NOTE | 2022-10-25 19:22 | RAD_ITS ---
STUDY: X-RAY - RIGHT ELBOW REASON FOR EXAM: Male, 72 years old. pain TECHNIQUE: 4 view(s) of the elbow. COMPARISON: None. FINDINGS: Normal visualized humerus, radius and ulna. Normal radiocapitellar and ulnotrochlear articulations. The soft tissue structures are unremarkable. RAD/Elbow min 3 Views IMPRESSION: Normal x-ray examination of the elbow. Electronically Signed: Sixto Austin MD at 19:44 EDT ,
[2022-10-25] MEDS: Diphth,Pertuss(Acell),Tet Vac 0.5 ML Vial IM (20:09)
[2022-10-25 20:29] VITALS: BP 156/78; PULSE 81; RESP 16; O2SAT 99
[2022-10-25 20:30] VITALS: BP 156/78; PULSE 81; RESP 16; O2SAT 99
--- NOTE | 2022-10-28 12:17 | ED.VIS.FALL ---
HPI HPI - Fall History of Present Illness Chief Complaint: Trauma Narrative Narrative: 72-year-old male presenting with injury sustained from falling off a ladder which is estimated to be about 6 or 7 feet. He is at the top of the ladder and the ladder came out from under him and he fell flat on his right hip he sustained lacerations to the right forearm and left tibia. Denies head injury or LOC. He is not anticoagulated. He was unable to move at the scene. Does not have any neck or back pain. PFSH PFSH Medical History Hyperlipidemia Hypertension Osteogenesis imperfecta Home Medications atorvastatin 20 mg tablet 20 mg PO QHS 05/18/15 [History Last Taken 05/18/15 20 MG] esomeprazole magnesium 40 mg capsule,delayed release (Nexium) 40 mg PO DAILY 05/18/15 [History Last Taken 01/22/20] losartan 25 mg tablet 100 mg PO DAILY 05/18/15 [History Last Taken 01/22/20] trazodone 50 mg tablet 50 mg PO QHS 05/18/15 [History Last Taken 05/18/15 50 MG] aspirin 81 mg tablet,delayed release 81 mg PO DAILY@0800 01/02/20 [History Last Taken 01/19/20] semaglutide 14 mg tablet 20 mg PO DAILY psoriasis 10/25/22 [History Last Taken Unknown] Allergy/AdvReac Type Severity Reaction Status Date / Time Iodine and Iodide Containing Allergy Nausea/Vom/ Verified 10/25/22 16:50 Produc Diarrhea codeine AdvReac Vomiting Verified 10/25/22 16:50 shellfish derived AdvReac Nausea/Vom/ Verified 10/25/22 16:50 Diarrhea shrimp AdvReac Nausea/Vom/ Verified 10/25/22 16:50 Diarrhea Social History Smoking Status: Never smoker ROS ROS ED Constitutional Constitutional ED: Denies chills, fever(s) or subjective Eyes Eyes: Denies change in vision or diplopia ENT ENT ED: Denies rhinorrhea or sore throat Cardiovascular Cardiovascular: Denies chest pain or palpitations Respiratory/Chest Respiratory/Chest: Denies cough or dyspnea Gastrointestinal Gastrointestinal: Reports abdominal pain; Denies nausea or vomiting Genitourinary Genitourinary ED: Denies dysuria or hematuria Musculoskeletal Musculoskeletal: Reports other Details: Right hip pain, right forearm pain, left tibial pain Integumentary Reports other Details: Skin tear right forearm, laceration left tibia Neurologic Neurologic: Denies headache(s) or paresthesias EXAM Physical Exam Const Positive well nourished General Appearance ED: NAD GLENDA Reports normocephalic atraumatic Eyes PERRL and EOMs intact bilaterally Chest Wall inspection of chest normal and palpation of chest normal Resp normal respiratory effort and No no retractions Auscultation: Negative for rales, rhonchi or wheezes Cardio regular rate and regular rhythm GI GI Narrative: Tenderness to palpation right lower quadrant. Extremity Extremity Narrative: Tenderness to palpation over the right greater trochanter and pelvis. Pelvis is stable. Positive logroll on the right. Neuro oriented x3 and CN's II-XII intact bilaterally Peck Coma Scale: document GCS findings Spontaneous Obeys Commands Oriented 15 Sensorium / Orientation: alert Psych mental status grossly normal and thought process normal Skin Skin Narrative: 15 cm midline left tibial laceration with fairly good approximation of wound margins without active bleeding. No bony step-offs or deformities. Bleeding well controlled Right forearm has a skin tear on the medial side with no deep laceration. Bleeding well controlled MDM MDM MDM Narrative Medical decision making narrative: Patient presented after a fall. Superficial skin tear on the right forearm which is dressed. Left tibial region has a 15 cm laceration in the midline. I obtained x-rays of the left tibia which shows a inferior patellar fracture on my interpretation. This is age-indeterminate and he is not having much pain here. Otherwise there is no tibial fracture. The right forearm and elbow x-ray on my interpretation show no acute fractures. Right hip x-ray does show an acetabular fracture on my interpretation of the radiologist services and agrees. I did obtain a CT of the chest abdomen pelvis because he does have some lower abdominal pain. He also does have osteogenesis imperfecta. He does have pelvic fractures on CT as well as a right pelvic sidewall hematoma in addition to his acetabular fracture as well as pelvic fractures. CT brain and cervical spine were negative. For this reason he was consented for transfer to trauma center. I spoke with Yusuf Bianchi who accepted the patient. His pain was controlled with morphine. He was stable upon transfer. Impression: 1. Mechanical fall 2. Right forearm skin tear 3. Left tibial laceration 15 cm 4. Left patellar fracture 5. Right acetabular fracture 6. Superior inferior pubic rami fracture Radiography Diagnostic Testing: Clinical Impression(s) from Imaging Studies Chest/Abdomen/Pelvis CT 10/25/22 17:00 IMPRESSION: Right pelvic fractures as above. Right pelvic sidewall hematoma. Electronically Signed: Sixto Austin MD at 18:47 EDT , Brain CT 10/25/22 17:01 IMPRESSION: Subcutaneous Metallic foreign body near the right eye requires clinical correlation. No acute intracranial disease. Electronically Signed: Sixto Austin MD at 18:25 EDT , Cervical Spine CT 10/25/22 17:01 IMPRESSION: No fracture Electronically Signed: Sixto Austin MD at 18:29 EDT , Forearm X-Ray 10/25/22 17:45 IMPRESSION: Probable nondisplaced radial head fracture. Recommend dedicated elbow films. Electronically Signed: Sixto Austin MD at 18:32 EDT , Hip/Pelvis X-Ray 10/25/22 17:45 IMPRESSION: Acetabular fracture and protrusio on the right Electronically Signed: Sixto Austin MD at 18:34 EDT , Tibia/Fibula X-Ray 10/25/22 17:45 IMPRESSION: Fracture inferior pole patella, age indeterminate versus ossification of the quadriceps tendon. Total knee arthroplasty. Electronically Signed: Sixto Austin MD at 18:38 EDT Reading Location ID and State: [facility] / [place] , Service support , Elbow X-Ray 10/25/22 19:22 IMPRESSION: Normal x-ray examination of the elbow. Electronically Signed: Sixto Austin MD at 19:44 EDT , Discharge Plan Triage Chief Complaint: Trauma ED Provider: Gunnar Stevenson Dx/Rx/DC Orders Prescriptions: No Action atorvastatin 20 MG tablet 20 mg PO QHS trazodone 50 MG tablet 50 mg PO QHS esomeprazole magnesium [Nexium] 40 MG capsule 40 mg PO DAILY losartan 25 MG tablet 100 mg PO DAILY aspirin 81 MG tablet 81 mg PO DAILY@0800 semaglutide 14 mg tablet 20 mg PO DAILY Primary Care Provider: Jeff Worley Referrals: Jeff Worley MD [Primary Care Provider] - Disposition Disposition: Acute Care Hospital Discharge Location: [facility] Discharge Date/Time: 10/25/22 20:31
== END 2022-10-25 20:31 | disposition short-term general hospital (02) ==
LOC: ED 17:32
PROVIDERS: Emergency Provider Student in an Organized Health Care Education/Training Program; PCP Family Medicine; Visit Provider Student in an Organized Health Care Education/Training Program
DX: S82.002A Unspecified fracture of left patella, initial encounter for closed fracture (principal); S32.401A Unspecified fracture of right acetabulum, initial encounter for closed fracture; S32.509A Unspecified fracture of unspecified pubis, initial encounter for closed fracture; I10 Essential (primary) hypertension; W11.XXXA Fall on and from ladder, initial encounter; E78.5 Hyperlipidemia, unspecified; Z79.899 Other long term (current) drug therapy; Z79.82 Long term (current) use of aspirin; S81.812A Laceration without foreign body, left lower leg, initial encounter; S51.801A Unspecified open wound of right forearm, initial encounter
CPT/HCPCS: 70450; 71250; 72125; 73080; 73090; 73502; 73590; 74176; 80048; 85025; 90715; 93005; 99285; J7030; A4216; J2405

== ENCOUNTER → 2023-05-17 | Outpatient (CLI) | payer MEDICARE, OTHER, SELFPAY ==
[2023-05-17 15:37] LABS: Absolute Lymphocyte Count 1.52 X10^3/uL (0.83-4.51); Absolute Neutrophil Count 5.3 X10^3/uL (2.0-7.7); Basophil# 0.08 X10^3/uL; Eosinophil# 0.25 X10^3/uL; Eosinophils% 3.1 % (0-5); Hematocrit 38.6 % (40-54); Hemoglobin 13.3 g/dL (13.0-16.5); Lymphocyte # 1.52 X10^3/ul (0.83-4.51); Mean Corp Hgb Conc 34.5 g/dL (32-36); Mean Corpuscular Hgb 32.3 pg (27.0-32.0); Mean Corpuscular Volume 93.7 fL (80-94); Mean Platelet Vol. 9.5 fl (6.2-12.0); Monocyte# 0.81 X10^3/uL; Monocyte% 10.2 % (0-10); NRBC Flagged by Analyzer 0 % (0-5); Neutrophil # 5.31 X10^3/uL (2.7-7.7); Neutrophil % 66.6 % (47-70); Platelet Count 303 K/mm3 (150-450); RBC Distribution Width CV 11.8 % (11.6-14.6); RBC Distribution Width SD 40.5 fl (35.1-43.9); Red Blood Count 4.12 M/mm3 (4.6-6.2)
[2023-05-17 16:00] LABS: ALB/GLOB Ratio 1.3 RATIO (0.9-2.4); AST(SGOT) 19 U/L (15-37); Alanine Aminotransfer ALT/SGPT 21 U/L (16-61); Alkaline Phosphatase 107 U/L (45-117); Anion Gap 3 (5-15); BUN 8 mg/dL (7-18); BUN/Creat Ratio 11.1 RATIO (10-20); Chloride 102 mmol/L (98-107); Creatinine, Serum 0.72 mg/dL (0.70-1.30); EST Glomerular Filtration Rate 114 mL/min (>60); Est Glom Filt Rate - Afr Amer 138 mL/min (>60); Globulin 3.1 g/dL (2.2-4.2); Glucose 145 mg/dL (74-106); Potassium 3.8 mmol/L (3.5-5.1); Protein, Total 7.1 g/dL (6.4-8.2); Sodium Level 131 mmol/L (136-145)
[2023-05-19 15:08] LABS: Hepatitis B Core Ab Total Positive (Negative); QNTFERON TB Mitogen Value > 10.00 IU/mL (.); QNTFERON TB Nil Value 0 IU/mL (.); QNTFERON TB1+ Ag Value 0 IU/mL (.); QNTFERON TB2+ Ag Value 0 IU/mL (.); QNTIFERON TB Positive Criteria Negative (Negative)
== END | disposition home or self-care (01) ==
PROVIDERS: PCP Family Medicine; Referring Provider Physician Assistant; Visit Provider Physician Assistant
DX: L40.0 Psoriasis vulgaris (principal); L57.0 Actinic keratosis; Z79.899 Other long term (current) drug therapy
CPT/HCPCS: 36415; 80053; 85025; 86480; 86704

== ENCOUNTER → 2023-05-23 | Outpatient (CLI) | payer MEDICARE, OTHER, SELFPAY ==
[2023-05-23 12:46] LABS: Hepatitis B Surface Antibody Reactive; Hepatitis B Surface Antigen Non-Reactive (Nonreactive)
--- OUTSIDE RECORDS SUMMARY | 2023-05-23 13:25 | XMS RPT_ITS | CCD ---
Author Name Unknown Address [address] [place] [address] [address] [place] [address] Organization [facility] Care Team Providers Care Direct Sales Consultant Name Role Phone Jeff Thomas MD Primary Care Provider CONY CLEMENT Admitting Unavailable RACHEL FUNEZ Consulting Unavailable TRISHA ZHONG Attending Unavailable RACHEL FUNEZ Attending Unavailable JEFF THOMAS Primary Care Unavailable RACHEL FUNEZ Attending Unavailable JEFF THOMAS Primary Care Unavailable RACHEL FUNEZ Referring Unavailable JEFF THOMAS Primary Care Unavailable JEFF THOMAS Primary Care Unavailable RACHEL FUNEZ Unavailable JEFF THOMAS Primary Care Unavailable RACHEL FUNEZ Unavailable Allergies Allergy Classification Reported Allergen(s) Allergy Type Date of Onset Reaction(s) Facility (11 sources) Iodine; Translations: [IODINE] Drug Allergy 04-18-2013 Other: See Comments [facility] Medications Current Medications Medication Drug Class(es) Dates Sig (Normalized) Sig (Original) docusate sodium 50 mg / sennosides, group home 8.6 mg oral tablet (2 sources) Start: 10-29-2022 End: 11-03-2022 take 1 tablet by mouth twice daily senna-docusate (SENNA-S) 8.6-50 mg per tablet Take 1 tablet by mouth twice daily for 5 days. 10 tablet 0 10/29/2022 11/03/2022 Active Completed/Discontinued Medications Medication Drug Class(es) Dates Sig (Normalized) Sig (Original) alendronic acid 70 mg oral tablet (9 sources) Bisphosphonate Start: 03-16-2013 ALENDRONATE 70 mg tablet esomeprazole 40 mg delayed release oral capsule (9 sources) Proton Pump Inhibitor Start: 03-18-2013 NEXIUM 40 mg capsule Indications: Occlusion and stenosis of carotid artery without mention of cerebral infarction once daily. 0 03/18/2013 Active Problems Active Problems Problem Classification Problem Date Documented Date Episodic/Chronic Esophageal disorders (9 sources) Gastroesophageal reflux disease; Translations: [Gastro-esophageal reflux disease without esophagitis] 10-27-2022 Chronic Essential hypertension (9 sources) Hypertensive disorder; Translations: [Essential (primary) hypertension] 10-27-2022 Chronic Occlusion or stenosis of precerebral arteries (9 sources) Carotid artery occlusion; Translations: [Occlusion and stenosis of unspecified carotid artery] Onset: 04-18-2013 04-18-2013 Chronic Open wounds of extremities (9 sources) Laceration of lower limb; Translations: [Laceration without foreign body, left lower leg, initial encounter] 10-29-2022 Episodic Other fractures (12 sources) Closed transverse and posterior wall fracture of acetabulum; Translations: [Displaced associated transverse-posterior fracture of right acetabulum, initial encounter for closed fracture] Onset: 10-26-2022 10-29-2022 Episodic Other fractures (9 sources) Fracture of multiple pubic rami; Translations: [Other specified fracture of right pubis, initial encounter for closed fracture] 10-29-2022 Episodic Past or Other Problems Problem Classification Problem Date Documented Da te Episodic/Chronic E Codes: Fall (1 source) Unspecified fall, initial encounter; Translations: [Fall, initial encounter] Onset: 10-29-2022 Episodic Fracture of neck of femur (hip) (1 source) Fracture of unspecified part of neck of right femur, initial encounter for closed fracture; Translations: [Closed fracture of right hip, initial encounter ([facility])] Onset: 10-25-2022 Episodic Other fractures (2 sources) Displaced associated transverse-posterio r fracture of right acetabulum, subsequent encounter for fracture with routine healing; Translations: [Closed displaced combined transverse-posterio r fracture of right acetabulum with routine healing, subsequent encounter] Onset: 10-29-2022 Episodic Other fractures (1 source) Other specified fracture of right pubis, initial encounter for closed fracture; Translations: [Closed fracture of multiple pubic rami, right, initial encounter ([facility])] Onset: 10-29-2022 Episodic Other fractures (1 source) Displaced associated transverse-posterio r fracture of right acetabulum, initial encounter for closed fracture; Translations: [Closed displaced combined transverse-posterio r fracture of right acetabulum, initial encounter ([facility])] Onset: 10-29-2022 Episodic Superficial injury; contusion (9 sources) Abrasion of right elbow, initial encounter; Translations: [Abrasion or friction burn of elbow, forearm, and wrist, without mention of infection] Onset: 10-27-2022 10-29-2022 Episodic Results Test Name Value Interpretation Reference Range Facil ity Vital Signs Date Time Vital Sign Value Performing Clinician Faci lit 12-06-2022 09:23-0400 Body height 167.6 cm Rachel Funez MD Work Phone: [facility] 12-06-2022 [id number] Body weight 65.77 kg Rachel Funez MD Work Phone: [facility] 12-06-2022 09:23-0400 Respiratory rate 18 /min Rachel Funez MD Work Phone: [facility] Encounters Encounter Date Encounter Type Care Provider Facility Start: 03-14-2023 End: 03-14-2023 ambulatory RACHEL FUNEZ Facility:[facility] Start: 03-14-2023 End: 03-14-2023 Subsequent hospital visit by physician Cel[facility] Yossi Salamanca Work Phone: Radiology Procedures Date Procedure Procedure Detail Performing Clinician Start: 02-06-2023 Radiologic examinati on pelvis 1/2 views Rachel Funez MD Work Phone: Start: 01-02-2023 Radiologic examinati on pelvis 1/2 views Rachel Funez MD Work Phone: Start: 12-06-2022 Radiologic examinati on pelvis 1/2 views Rachel Funez MD Work Phone: Start: 10-26-2022 Antibody screen CONY SANTOYO Plan of Treatment Date Care Activity Detail Author Start: 10-25-2032 Urine microalbumin profile DTaP,Tdap,Td Vaccine (2 - Td or Tdap) [facility] Start: 10-29-2025 DIABETES SCREEN DIABETES SCREEN [facility] Start: 10-29-2025 Diabetes Screening Diabetes Screening [facility] Start: 12-16-2022 Covid-19 Vaccine () Covid-19 Vaccine () [facility] Start: 12-16-2022 Influenza vaccination [facility] Start: 04-17-2022 ADVANCE DIRECTIVE DISCUSSION ADVANCE DIRECTIVE DISCUSSION [facility] Start: 04-17-2022 DEPRESSION ASSESSMENT DEPRESSION ASSESSMENT [facility] Start: 08-26-2020 COVID-19 VACCINE (3 - Moderna series) COVID-19 VACCINE (3 - Moderna series) [facility] Start: 02-11-2017 Pneumococcal Vaccine: 65+ (2 - PPSV23 or PCV20) Pneumococcal Vaccine: 65+ (2 - PPSV23 or PCV20) [facility] Start: 2015 Pneumococcal Vaccine: 65+ (1 - PCV) Pneumococcal Vaccine: 65+ (1 - PCV) [facility] Start: 2015 PNEUMOCOCCAL: 65+ (1 - PCV) PNEUMOCOCCAL: 65+ (1 - PCV) [facility] Start: 2010 RSV Vaccine (1 - 1-dose 60+ series) RSV Vaccine (1 - 1-dose 60+ series) [facility] Start: 01-07-2000 SHINGRIX VACCINE (1 of 2) SHINGRIX VACCINE (1 of 2) [facility] Start: 1995 COLOGUARD (FIT-DNA) COLOGUARD (FIT-DNA) [facility] Start: 1995 Colonoscopy COLONOSCOPY [facility] Start: 1995 COLORECTAL CANCER SCREENING COLORECTAL CANCER SCREENING [facility] Start: [address] COLONOGRAPHY [facility] Start: 1995 FECAL OCCULT BLOOD FECAL OCCULT BLOOD [facility] Start: 1995 SIGMOIDOSCOPY SIGMOIDOSCOPY [facility] Start: 1985 Lipid 1996 panel - Serum or Plasma Lipid Screening [facility] Start: 1985 LIPID SCREEN LIPID SCREEN [facility] Start: 1969 Urine microalbumin profile [facility] Start: 01-07-1968 ANNUAL PCP TEAM CHRONIC DISEASE VISIT ANNUAL PCP TEAM CHRONIC DISEASE VISIT [facility] Start: 01-07-1968 BP CONTROLLED (<130/80) BP CONTROLLED (<130/80) [facility] Start: 01-07-1968 HEPATITIS C SCREENING HEPATITIS C SCREENING [facility] Radiologic examinati on pelvis 1/2 views XR PELVIS 1V AP Radiology Routine Closed displaced combined transverse-posterior fracture of right acetabulum with routine healing, subsequent encounter Ordered: 12/06/2022 [facility] Work Phone: Immunizations Immunization Date Immunization Notes Care Provider Fa cility 01-09-2019 influenza virus vacc ine, unspecified formulation Rachel Funez MD Work Phone: [facility] Payers Date Payer Category Payer Medicare MEDICARE MEDICAR E A AND B [id number] 2019-Present [phone] [address] [address] [place] [address] Medicare [id number] 2019 Medicare [id number] 2019 Medicare [id number] 2019 Unknown MMO MMO MEDICARE SUPPLEMENT [id number] 2019-Present [phone] [address] [place] [address] Indemnity [id number] Social History Date Type Detail [facility] Start: 10-26-2022 End: 12-06-2022 Alcohol intake Not Asked [facility] Start: 10-26-2022 End: 12-06-2022 History of Social function [facility] Start: 10-26-2022 End: 12-06-2022 Tobacco use panel [facility] National Score (1-10 0), lower number is lower risk [address] [facility] Start: 1950 Sex Assigned At Male [facility] Start: 10-26-2022 Gender identity Identifies as male gender (finding) [facility] Start: 10-26-2022 Sexual orientation Heterosexual (mauricio pugh) [facility] Medical Equipment Procedure Code Equipment Code Equipment Origin al Text Equipment Identifier Dates Screw Bone 2.5mm Fulthd Hexagon 3.5mm 75mm Self Tap Axsos [id number] Start: 10-26-2022 Screw Axsos 3.5m m 2.5mm Full Thread Hexagon Stainless Steel 50mm Bone Self - [id number] Start: 10-26-2022 Clinical Notes 10-26-2022 to 03-14-2023 Telephone Encounter - [place] - 02/08/2023 10:31 AM Sierra Acosta RT(Nica) - 02/06/2023 9:30 AM EDTTelephone Encounter - [place] - 12/06/2022 12:57 PM EDT Note Date & Type Note Facility 03-14-2023 Note HNO ID: [id number] Author: Mony Simmons RT(Nica) Service: ? Author Type: Space And Storage Clerk Type: Progress Notes Filed: 03/14/2023 11:56 AM Note Text: Radiology Service Progress Note PATIENT NAME: Yasir Montiel DATE OF SERVICE: March 14, 2023 TIME: 11:43 AM PATIENT IDENTITY VERIFICATION COMPLETED USING TWO (2) IDENTIFIERS: Name and Date of confirmed by patient verbally. FALL SCREENING: Has the patient had 2 falls in the last year or 1 fall with injury or currently using an Ambulatory Assistive Device (Walker, Cane, Wheelchair, Crutches, etc.)? No PATIENT GENDER DATA: Male PATIENT RELEVANT IMPLANT DATA REVIEWED: Yes RADIOLOGY DEPARTMENT: General X-ray: Exam(s) Completed: Pelvis X-Ray: Pelvis General AP PERIPHERAL IV DATA: Not applicable SIGNED BY: RT Pablo(Nica) March 14, 2023 11:43 AM [facility] 02-08-2023 Miscellaneous Notes Formattin g of this note might be different from the original. Called to inform the patient that the order is in his chart ready to go. Also told him that if he goes to a facility outside of [facility] I would be happy to fax it to them. He understood. [place] February 08, 2023 10:36 AM documented in this encounter [facility] 02-06-2023 Note HNO ID: [id number] Author: Sierra Cuellar RT(Nica) Service: ? Author Type: Technologist Type: Progress Notes Filed: 02/06/2023 9:49 AM Note Text: Radiology Service Progress Note PATIENT NAME: Yasir Montiel DATE OF SERVICE: February 06, 2023 TIME: 9:49 AM PATIENT IDENTITY VERIFICATION COMPLETED USING TWO (2) IDENTIFIERS: Name and Date of confirmed by patient verbally. FALL SCREENING: Has the patient had 2 falls in the last year or 1 fall with injury or currently using an Ambulatory Assistive Device (Walker, Cane, Wheelchair, Crutches, etc.)? Yes, Patient High Risk for Falls What interventions were put in place to prevent falls during this visit? Increased Observations by Caregivers PATIENT GENDER DATA: Male PATIENT RELEVANT IMPLANT DATA REVIEWED: Not Applicable RADIOLOGY DEPARTMENT: General X-ray: Exam(s) Completed: Pelvis X-Ray: Pelvis General AP PERIPHERAL IV DATA: Not applicable SIGNED BY: RT Louis(R) February 06, 2023 9:49 AM [facility] 02-06-2023 History of Presen t illness Narrative Radiology Service Progress Note PATIENT NAME: Yasir Montiel DATE OF SERVICE: February 06, 2023 TIME: 9:49 AM PATIENT IDENTITY VERIFICATION COMPLETED USING TWO (2) IDENTIFIERS: Name and Date of confirmed by patient verbally. FALL SCREENING: Has the patient had 2 falls in the last year or 1 fall with injury or currently using an Ambulatory Assistive Device (Walker, Cane, Wheelchair, Crutches, etc.)? Yes, Patient High Risk for Falls What interventions were put in place to prevent falls during this visit? Increased Observations by Caregivers PATIENT GENDER DATA: Male PATIENT RELEVANT IMPLANT DATA REVIEWED: Not Applicable RADIOLOGY DEPARTMENT: General X-ray: Exam(s) Completed: Pelvis X-Ray: Pelvis General AP PERIPHERAL IV DATA: Not applicable SIGNED BY: RT Louis(Nica) February 06, 2023 9:49 AM documented in this encounter [facility] 01-02-2023 Note HNO ID: [id number] Author: Mony Simmons RT(Nica) Service: ? Author Type: Space And Storage Clerk Type: Progress Notes Filed: 01/02/2023 10:07 AM Note Text: Radiology Service Progress Note PATIENT NAME: Yasir Montiel DATE OF SERVICE: January 02, 2023 TIME: 10:06 AM PATIENT IDENTITY VERIFICATION COMPLETED USING TWO (2) IDENTIFIERS: Name and Date of confirmed by patient verbally. FALL SCREENING: Has the patient had 2 falls in the last year or 1 fall with injury or currently using an Ambulatory Assistive Device (Walker, Cane, Wheelchair, Crutches, etc.)? Yes, Patient High Risk for Falls What interventions were put in place to prevent falls during this visit? Offered Assistance with Transfers/Clothing and Increased Observations by Caregivers PATIENT GENDER DATA: Male PATIENT RELEVANT IMPLANT DATA REVIEWED: Yes RADIOLOGY DEPARTMENT: General X-ray: Exam(s) Completed: Pelvis X-Ray: Pelvis General AP PERIPHERAL IV DATA: Not applicable SIGNED BY: RT Pablo(R) January 02, 2023 10:06 AM [facility] 12-06-2022 Miscellaneous Notes Formattin g of this note might be different from the original. Ed at [facility] called asking about the patient's weightbearing status. Let him know of the update. [place] December 06, 2022 12:59 PM documented in this encounter [facility] 12-06-2022 Note HNO ID: [id number] Author: Rachel Funez MD Service: ? Author Type: Physician Type: Progress Notes Filed: 12/06/2022 9:49 AM Note Text: Subjective: Patient returns today follow-up in his right acetabulum fracture. Overall doing okay. Has had minimal weightbearing. Continues use his walker. Has finished home therapy. States his pain is getting better. Objective: Examination right lower extremity shows it to be neuro vas intact. Minimal pain with internal and external rotation of his hip. Imaging: Please refer to the radiographic interpretation Assessment: #1 right transverse posterior wall acetabular fracture. Plan: At this time he will continue to be touchdown weightbearing. In 2 weeks, he can begin partial weightbearing. He will do this with his walker. I will repeat an x-ray in 4 weeks. He is going to have this done at his home [facility] institution. Following this x-ray, I will contact him with the results. We will then begin outpatient physical therapy. There are any questions or concerns prior to the next encounter, they will contact the office. Their questions were answered. [facility] 12-06-2022 History of Presen t illness Narrative Subjective: Patient returns today follow-up in his right acetabulum fracture. Overall doing okay. Has had minimal weightbearing. Continues use his walker. Has finished home therapy. States his pain is getting better. Objective: Examination right lower extremity shows it to be neuro vas intact. Minimal pain with internal and external rotation of his hip. Imaging: Please refer to the radiographic interpretation Assessment: #1 right transverse posterior wall acetabular fracture. Plan: At this time he will continue to be touchdown weightbearing. In 2 weeks, he can begin partial weightbearing. He will do this with his walker. I will repeat an x-ray in 4 weeks. He is going to have this done at his home [facility] institution. Following this x-ray, I will contact him with the results. We will then begin outpatient physical therapy. There are any questions or concerns prior to the next encounter, they will contact the office. Their questions were answered. documented in this encounter [facility] 11-15-2022 Note HNO ID: [id number] Author: Rachel Funez MD Service: ? Author Type: Physician Type: Progress Notes Filed: 11/15/2022 10:06 AM Note Text: Subjective: Patient returns today follow-up in his right acetabulum fracture. Had surgical fixation approximately 3 weeks ago. Overall doing well. Having minimal pain. Has been touchdown with physical therapy. Objective: Examination right lower extremity shows it to be neuro vas intact. Able to move his right hip without significant pain. Incisions healing well. Imaging: Please refer to the radiographic interpretation Assessment: #1 right T-type acetabular fracture. Plan: At this time he is doing well. Maintain his touchdown weightbearing status. X-rays were reviewed with patient and family. Aleksander removed. I will see him back in 3 weeks. If there is any questions or concerns, they will contact the office. Questions answered. They will continue with Lovenox. [facility] 10-31-2022 Miscellaneous Notes Formattin g of this note might be different from the original. ----- Message from Rachel Funez MD sent at 10/31/2022 3:21 PM EDT ----- Thanks ----- Message ----- From: [place] Sent: 10/31/2022 3:03 PM EDT To: Rachel Funez MD This patient's home PT called to let you know of their plan. The will see the patient 2 times a week for 4 weeks for Functional Mobility training. Ema documented in this encounter [facility] 10-31-2022 Miscellaneous Notes Formattin g of this note might be different from the original. Called and spoke with Marcela from [facility] [phone] and informed her of what the doctor said. [place] October 31, 2022 10:09 AM ----- Message from Rachel Funez MD sent at 10/31/2022 6:06 AM EDT ----- Yes ----- Message ----- From: [place] Sent: 10/28/2022 4:25 PM EDT To: Rachel Funez MD I got a call from this patient's home care asking if you will follow the home PT and OT? Just let me know. Ema Chu documented in this encounter [facility] 10-29-2022 Note HNO ID: [id number] Author: Madalyn Ocasio RN Service: Care Management Author Type: Registered Nurse Type: Care Mgt Progress Note Filed: 10/29/2022 10:47 AM Note Text: CARE MANAGEMENT DISCHARGE NOTE SERVICE DATE: October 29, 2022 SERVICE TIME: 10:46 AM Admission Date: 10/25/2022 LOS: 3 days Discharge Arrangement Discharge Arrangement: Home with Home Health, Home with Self Care, Home with Relative Services Arranged Medical Services: Skilled Home Health Care Type: Home Health Agency Provider Name: [facility] Caregiver Assessment Caregiver is ready, willing and able to meet the patient's needs as recommended by the inter-professional team: No Caregiver needed Transportation Arrangements Transportation Arrangements: Car Handoff Communication: Handoff to: Primary Care Physician Primary Care Physician Name/Phone: Jeff Thomas MD, Additional Information: Discharge Information Row Name ED to Hosp-Admission (Current) from 10/25/[address] [facility] Care Agency [facility] Pt is being discharged home with services from [facility] and a hospital bed from [facility]. Hospital bed will be delivered on Monday. Discharge instructions faxed to [facility] at [phone]. Pt's to transport him home. SIGNATURE: Madalyn Ocasio RN, BSN PATIENT NAME: Yasir Montiel DATE: October 29, 2022 TIME: 10:45 AM CONTACT #: [phone] [facility] 10-29-2022 Note HNO ID: [id number] Author: Adalgisa Cortes APRN.EVONNE Service: General Surgery Author Type: Nurse Practitioner Type: Progress Notes Filed: 10/29/2022 8:23 AM Note Text: Trauma Surgery Progress Note SERVICE DATE: 10/29/2022 Trauma Service Pager: For questions or concerns Mon-Mon 6a-5p please page [phone]. After 5pm and on Weekends and Holidays, please page [phone] if in ICU or [phone] if on RNF. SUBJECTIVE: NAEON. Patient reports pain is controlled. Tolerating diet with no focal complaints. Would like to go home today. OBJECTIVE: Vitals: Temp (24hrs), Av.9 ?C (98.5 ?F), Min:36.8 ?C (98.2 ?F), Max:37.1 ?C (98.8 ?F) BP 110/62 Pulse 84 Temp 36.8 ?C (98.2 ?F) (Oral) Resp 18 Ht 167.6 cm (5' 6 ) Wt 66.2 kg (145 lb 15.1 oz) SpO2 98% BMI 23.56 kg/m? O2 Therapy: Room Air IANDO: Date 10/28/22699 - 10/29/22 0659 10/29/22 07 - 10/30/22 0659 Shift 7511-6435 2384-6504 5577-9133 24 Hour Total 3491-8688 7701-3568 6778-9706 24 Hour Total INTAKE PO 120 120 PO 120 120 Shift Total 120 120 OUTPUT Urine 400 300 700 Void (ml) 400 300 700 Shift Total 400 300 700 Weight (kg) 66.2 66.2 66.2 66.2 66.2 66.2 66.2 66.2 MEDICATIONS Current Facility-Administered Medications Medication Dose Route Frequency losartan 100 mg tab(s) (COZAAR) 100 mg ORAL DAILY senna-docusate 8.6-50 mg 1 tablet (SENNA-S) 1 tablet ORAL BID pantoprazole DR 40 mg tab(s) (PROTONIX) 40 mg ORAL DAILY (6 AM) oxyCODONE IR 5-10 mg tab(s) (ROXICODONE) 5-10 mg ORAL q 6 H PRN acetaminophen 975 mg tab(s) (TYLENOL) 975 mg ORAL QID ondansetron (PF) 4 mg injection (ZOFRAN) 4 mg INTRAVENOUS q 6 H PRN enoxaparin 30 mg injection (LOVENOX) 30 mg SUBCUTANEOUS q 12 HR NaCl 0.9% iv flush bag 20 mL INTRAVENOUS PRN Labs: Recent Labs 10/29/22 0026 10/28/22 1308 10/28/22 0039 NA 134* -- 135* K 3.6* -- 3.9 CHLOR 100 -- 102 CO2 25 -- 25 BUN 8* -- 7* CREAT 0.72* -- 0.78 GLUC 116* -- 130* ANION 9 -- 8* CA 9.4 -- 8.7 WBC 9.99 9.65 8.84 HB 9.0* 8.5* 8.6* HCT 27.0* 26.1* 25.4* PLT 214 215 179 PHYSICAL EXAM: Genl: Appears age appropriate. No acute distress. Resting comfortably. Head/Face: Normocephalic. Atraumatic. Eyes: EOMI. Sclera not icteric, not injected Resp: No audible wheezes. Breathing is non-labored on RA. CVS: HR as above; 2+ pulses at RA, DP bilat. GI: Abdomen is soft, non-tender, not distended. No peritonitis. MSK: Extremities without clubbing, cyanosis, edema. Normal ROM x 3. RLE surgical dressing CDI. Left left laceration s/p repaired with sutures (routine healing, no drainage). Right elbow abrasion covered with dressing. Skin: Warm and dry. Not jaundiced. Neuro: AANDOx3. Strength and sensation normal. DICKERSON. GCS15. Psych: Normal mood. Normal affect. Appropriate insight into current situation. ASSESSMENT AND PLAN: Active Hospital Problems Diagnosis Date Noted Trauma 10/26/2022 Fall 10/27/2022 Abrasion of right elbow 10/27/2022 HTN (hypertension) Chronic GERD (gastroesophageal reflux disease) Chronic Leg laceration, left, initial encounter Closed fracture of multiple pubic rami, right, initial encounter ([facility]) Closed displaced associated transverse-posterior fracture of right acetabulum ([facility]) 10/26/2022 72 year old male s/p fall from ladder on 10/25/2022. Trauma transfer from outside ED. Imaging performed: CT H/N/C/A/P, PXR, XR L tibia/fibula, XR R forearm/elbow on 10/25/2022 PXR x 2 and XR bilateral knees on 10/26/2022 Traumatic Injuries: Right elbow abrasion Left lower leg laceration Comminuted right acetabular fracture with pelvic sidewall hematoma Right inferior and superior pubic rami fractures Operations/Procedures: 1. Left leg laceration repair with sutures in the ED on 10/26/2022 2. ORIF right acetabulum fracture on 10/26/2022 (Dr. Funez) Care Plan: Right acetabulum fracture, R pubic rami fractures, and R pelvic sidewall hematoma: Orthopedic surgery consulted and following along POD#3 s/p ORIF R acetabulum TDWB RLE Ancef has been completed TXA given upon admission Hg - stable, 9.0 from 8.5 from 8.6 Okay for DVT ppx - will need 21 days per orthopedic surgery Pain control Continue PT/OT Follow up with Dr. Funez as an outpatient Right elbow abrasion and left leg laceration: Local wound care Left leg s/p laceration repaired with non-absorbable sutures in the ED Follow up with PCP vs trauma clinic for wound evaluations and suture removal History of HTN: Continue home Losartan History of GERD: Continue Protonix Current diet order: DIET REGULAR Pain regimen: Scheduled Tylenol and PRN Roxicodone Bowel regimen: Senna-S BID Labs: As above Discharge home with HHC today PPX: DVT: LVX 30 mg q 12 x 21 days, SCD's, and mobilize order Ulcer: Protonix Vit D level if > 65 yo: 32.7 Consulted Services: Orthopedic surgery PT/OT Dispo Planning: PT/OT recs SNF. Case management following. Discharge home today with C. (more content not included)... [facility] 10-28-2022 Note HNO ID: [id number] Author: America Nguyen RN Service: Care Management Author Type: Registered Nurse Type: Care Mgt Progress Note Filed: 10/28/2022 1:03 PM Note Text: CARE MANAGEMENT PROGRESS NOTE SERVICE DATE: 10/28/2022 SERVICE TIME: 12:59 PM LOS: 2 days DC Plan: Home with HHC through [facility], pt still refusing SNF, [facility] able to accept, ADOD for Monday, [facility] able to do SOC on Monday ; [facility] stated that they don't have access to allscripts over the weekend so will need discharge summary note faxed to [phone] (Attention to: Intake) ; confirmed with [facility] that hospital bed will be delivered on Monday, pt has access to wheeled walker at home Barriers to dc: monitoring HGB Anticipated dc date: Sunday 10/29 Transportation: pt states he would like for his to provide transportation home SIGNATURE: mAerica Nguyen RN PATIENT NAME: Yasir Montiel DATE: October 28, 2022 TIME: 12:59 PM PAGER/CONTACT #: [phone] [facility] 10-28-2022 Note HNO ID: [id number] Author: Rachel Greenberg PA-C Service: General Surgery Author Type: [employer] Member Type: Progress Notes Filed: 10/28/2022 12:50 PM Note Text: Trauma Surgery Progress Note SERVICE DATE: 10/28/2022 Trauma Service Pager: For questions or concerns Mon-Fri 6a-5p please page [phone]. After 5pm and on Weekends and Holidays, please page [phone] if in ICU or [phone] if on RNF. SUBJECTIVE: Patient is POD#2 s/p ORIF R Acetabulum fracture. He again denied any current MICHELE, CP, SOB, N/V, ABD pain, fevers, chills, or cough. He is tolerating his diet and passing flatus. His pain is better controlled this morning compared to 24 hours prior. PT/OT recommending SNF. Patient would like to go home with home health care instead. OBJECTIVE: Vitals: Temp (24hrs), Av ?C (98.6 ?F), Min:36.7 ?C (98.1 ?F), Max:37.5 ?C (99.5 ?F) BP 153/72 Pulse 91 Temp 36.9 ?C (98.4 ?F) (Oral) Resp 18 Ht 167.6 cm (5' 6 ) Wt 66.2 kg (145 lb 15.1 oz) SpO2 96% BMI 23.56 kg/m? O2 Therapy: Room Air IANDO: Date 10/27/22699 - 10/28/22 0659 10/28/22699 - 10/29/22 0659 Shift 7672-9506 5323-7649 2991-0607 24 Hour Total 3353-0209 7268-3522 1647-8022 24 Hour Total INTAKE Shift Total OUTPUT Urine 200 400 600 Void (ml) 200 400 600 Shift Total 200 400 600 Weight (kg) 66.2 66.2 66.2 66.2 66.2 66.2 66.2 66.2 MEDICATIONS Current Facility-Administered Medications Medication Dose Route Frequency losartan 100 mg tab(s) (COZAAR) 100 mg ORAL DAILY senna-docusate 8.6-50 mg 1 tablet (SENNA-S) 1 tablet ORAL BID pantoprazole DR 40 mg tab(s) (PROTONIX) 40 mg ORAL DAILY (6 AM) oxyCODONE IR 5-10 mg tab(s) (ROXICODONE) 5-10 mg ORAL q 6 H PRN acetaminophen 975 mg tab(s) (TYLENOL) 975 mg ORAL QID ondansetron (PF) 4 mg injection (ZOFRAN) 4 mg INTRAVENOUS q 6 H PRN enoxaparin 30 mg injection (LOVENOX) 30 mg SUBCUTANEOUS q 12 HR NaCl 0.9% iv flush bag 20 mL INTRAVENOUS PRN Labs: Recent Labs 10/28/22 0039 10/27/22 0053 10/26/22 0441 10/25/22 2212 NA 135* 136 < > 136 K 3.9 4.2 -- 3.6* CHLOR 102 101 < > 104 CO2 25 22 < > 19* BUN 7* 8* < > 7* CREAT 0.78 0.79 < > 0.77 GLUC 130* 185* < > 125* ANION 8* 13 < > 13 CA 8.7 9.0 < > 8.7 ALB -- -- -- 3.8* AST -- -- -- 26 ALT -- -- -- 18 ALKPHOS -- -- -- 89 TBILI -- -- -- 0.6 WBC 8.84 11.44* < > 11.34* HB 8.6* 9.7* < > 12.0* HCT 25.4* 28.6* < > 34.4* PLT 179 191 < > 208 INR -- -- -- 1.0 < > = values in this interval not displayed. PHYSICAL EXAM: Genl: Appears age appropriate. No acute distress. Resting comfortably. Head/Face: Normocephalic. Atraumatic. Eyes: EOMI. Sclera not icteric, not injected Resp: No audible wheezes. Breathing is non-labored on RA @96%. CVS: HR as above; 2+ pulses at RA, DP bilat. GI: Abdomen is soft, non-tender, not distended. No peritonitis. MSK: Extremities without clubbing, cyanosis, edema. Normal ROM x 3. RLE surgical dressing is C/D/I. Left left laceration s/p repaired with sutures (routine healing, no drainage). Right elbow abrasion covered with dressing. Skin: Warm and dry. Not jaundiced. Neuro: AANDOx3. Strength and sensation normal. DICKERSON. GCS15. Psych: Normal mood. Normal affect. Appropriate insight into current situation. ASSESSMENT AND PLAN: Active Hospital Problems Diagnosis Date Noted Trauma 10/26/2022 Fall 10/27/2022 Abrasion of right elbow 10/27/2022 HTN (hypertension) Chronic GERD (gastroesophageal reflux disease) Chronic Leg laceration, left, initial encounter Closed fracture of multiple pubic rami, right, initial encounter ([facility]) Closed displaced associated transverse-posterior fracture of right acetabulum ([facility]) 10/26/2022 72 year old male s/p fall from ladder on 10/25/2022. Trauma transfer from outside ED. Imaging performed: CT H/N/C/A/P, PXR, XR L tibia/fibula, XR R forearm/elbow on 10/25/2022 PXR x 2 and XR bilateral knees on 10/26/2022 Traumatic Injuries: Right elbow abrasion Left lower leg laceration Comminuted right acetabular fracture with pelvic sidewall hematoma Right inferior and superior pubic rami fractures Operations/Procedures: 1. Left leg laceration repair with sutures in the ED on 10/26/2022 2. ORIF right acetabulum fracture on 10/26/2022 (Dr. Funez) Care Plan: Right acetabulum fracture, R pubic rami fractures, and R pelvic sidewall hematoma: Orthopedic surgery consulted and following along POD#2 s/p ORIF R acetabulum TDWB RLE Ancef has been completed TXA given upon admission Hg - continue to monitor 8.6 from 9.7 from 11.8 from 12.0 Repeat CBC at 1 PM today to monitor Hg drop Okay for DVT ppx - will need 21 days per orthopedic surgery Pain control Continue PT/OT Follow up with Dr. Funez as an outpatient Right elbow abrasion and left leg laceration: Local wound care Left leg s/p laceration repaired with non-absorbable sutures in the ED Follow up with PCP vs trauma clinic for wound evaluations and suture (more content not included)... [facility] 10-28-2022 Note HNO ID: [id number] Author: America Nguyen RN Service: Care Management Author Type: Registered Nurse Type: Care Mgt Progress Note Filed: 10/28/2022 11:00 AM Note Text: CARE MANAGEMENT PROGRESS NOTE SERVICE DATE: 10/28/2022 SERVICE TIME: 10:59 AM LOS: 2 days IMM Follow Up Copy Given: Yes Copy given to:: Patient Method: In Person SIGNATURE: America Nguyen RN PATIENT NAME: Yasir Montiel DATE: October 28, 2022 TIME: 10:59 AM PAGER/CONTACT #: [phone] [facility] 10-28-2022 Note HNO ID: [id number] Author: Rachel Funez MD Service: Orthopaedic Surgery Author Type: Physician Type: Progress Notes Filed: 10/28/2022 3:26 PM Note Text: ORTHOPAEDIC SURGERY DAILY PROGRESS NOTE ASSESMENT: 72 year old M POD #2 s/p ORIF R acetabulum fracture. PLAN: - Management per trauma - Pain control. - Weight Bearing Status: TDWB RLE. - Dressing(s): Mepilex x 2 for 7 days to anterior incisions - PT/OT: Evaluation AND recommendations. - DVT PPx: SCDs. Recommend Lovenox 30 mg BID x 21 days. - Antibiotic PPx: Ancef 2 g Q8H x 2 doses complete - Anticipated Length of Stay/Disposition: per trauma, no further orthopedic surgical intervention anticipated. Patient may follow-up with Dr. Funez as an outpatient in 10-14 days. INTERVAL HPI: No acute events overnight. Pain controlled. Denies fevers and chills. Denies chest pain and shortness of breath. OBJECTIVE: BP 137/64 Pulse 73 Temp 36.9 ?C (98.4 ?F) (Oral) Resp 16 Ht 167.6 cm (5' 6 ) Wt 66.2 kg (145 lb 15.1 oz) SpO2 99% BMI 23.56 kg/m? Exam: General: NAD, AOx3 Right Lower Extremity: Dressing clean, dry and intact. Compartments of the thigh and leg soft and compressible. Tolerates passive stretch of digits. SILT Ramon/Sa/SP/DP/T. Motor intact EHL/FHL/G/S. 2+ DP/PT pulses. BCR. Recent Labs 10/28/22 0039 10/27/22 0053 10/26/22 0441 10/25/22 2212 CREAT 0.78 0.79 0.74 0.77 BUN 7* 8* 8* 7* NA 135* 136 135* 136 K 3.9 4.2 -- 3.6* CHLOR 102 101 103 104 CO2 25 22 20* 19* ANION 8* 13 12 13 GLUC 130* 185* 127* 125* CA 8.7 9.0 8.9 8.7 ALB -- -- -- 3.8* AST -- -- -- 26 ALT -- -- -- 18 ALKPHOS -- -- -- 89 TBILI -- -- -- 0.6 WBC 8.84 11.44* 8.06 11.34* HB 8.6* 9.7* 11.8* 12.0* HCT 25.4* 28.6* 34.9* 34.4* PLT 179 191 193 208 COAGS: APTT 24.4 10/25/2022 INR 1.0 10/25/2022 SED RATE/CRP: No results found for this basename: wsr:*,crp:* SIGNATURE: Adrián Armenta MD PATIENT NAME: Yasir Montiel DATE: 10/28/22 TIME: 6:21 AM PAGER/CONTACT #: [phone] Agree with resident assessment and plan. [facility] 10-27-2022 Note HNO ID: [id number] Author: America Nguyen RN Service: Care Management Author Type: Registered Nurse Type: Care Mgt Initial Assessment Filed: 10/27/2022 1:55 PM Note Text: CARE MANAGEMENT: ASSESSMENT AND DISCHARGE PLAN SERVICE DATE: October 27, 2022 SERVICE TIME: 1:49 PM PCP: Jeff Thomas MD Primary Contact: Extended Emergency Contact Information Primary Emergency Contact: Reva Montiel Address: [address] [place] [address] Relation: Spouse Secondary Emergency Contact: Emmanuel Montiel Address: [address] [place] [address] Mobile Relation: Son Admission Status: Inpatient Insurance Provider: MEDICARE A AND B Discharge Planning requested by: Per Department Practice Potential Transition Plans Home OT/PT;Durable Medical Equipment Advance Directives Current Advance Directive: None Edge Stripper Attempted to Assist with AD Completion: Yes Action: Patient Unwilling Current Living Arrangements and Support Lives with: Spouse/significant other Type of Residence: Private Residence (House) Does the patient have to climb stairs at home?: Yes Support: Spouse/significant other How do you manage to accomplish the following: Independent: Ambulation;Bathe/Shower;Dress; Meals/Meal Prep;Going to the bathroom;Medication Management;Transportation to appointments/community Current Services/Equipment Current Post-Acute Service(s): DME Current DME Type: Walker Discharge Planning Patient Goal(s): Ambulate a little better, General wellness [facility] Explained: [facility] Given: No Reason Not Given: Patient refused Are you interested in bedside delivery of your medications? Yes Discharge Planning Participant(s): Patient Patient/Family Comments: Caregiver Assessment: Caregiver is ready, willing and able to meet the patient's needs as recommended by the inter-professional team: No Caregiver needed Transport at Discharge: Transportation Arrangements: To Be Determined Needs Prior to Discharge: Needs Prior to Discharge: Home Care Order;OT/PT Evaluation;Transportation to Appointments Post-Acute Discharge Plan: Functional: Independent prior to admission Transportation: pt typically drives, pt unsure if he will need transportation set up at sd, would like to see how he does with mobility tomorrow Equipment Prior to Admission: has access to wheeled walker Support: pt's able to assist at [facility]: [facility] PCP: Jeff Thomas Spoke with pt for initial assessment, pt from home with , not active with home care, discussed pt/ot's recs for snf, pt is hopeful to progress and go home with home pt/ot , pt does not have preference for [facility] agency and agreeable to sending multiple home care referrals Patient has access to wheeled walker but states that his bed is on the second floor , pt interested in ordering a hospital bed, pt does not have preference for [facility] , order placed for hospital bed through [facility] [place] [place]; pt would like to see how he does with mobility tomorrow to decide if he would need wheelchair transportation at sd SIGNATURE: America Nguyen RN PATIENT NAME: Yasir Montiel DATE: October 27, 2022 TIME: 1:49 PM CONTACT #: [phone] [facility] 10-27-2022 Note HNO ID: [id number] Author: Rachel Greenberg PA-C Service: General Surgery Author Type: [employer] Member Type: Progress Notes Filed: 10/27/2022 12:51 PM Note Text: Trauma Surgery Progress Note SERVICE DATE: 10/27/2022 Trauma Service Pager: For questions or concerns Mon-Fri 6a-5p please page [phone]. After 5pm and on Weekends and Holidays, please page [phone] if in ICU or [phone] if on RNF. SUBJECTIVE: Patient is POD#1 s/p ORIF R Acetabulum fracture. He was sitting upright eating breakfast in bed this morning. No new focal concerns. He had one episode of N/V after surgery yesterday that has since resolved. He has moderate right hip pain this morning. He denied any current MICHELE, CP, SOB, N/V, ABD pain, fevers, chills, or cough. OBJECTIVE: Vitals: Temp (24hrs), Av.7 ?C (98.1 ?F), Min:36 ?C (96.8 ?F), Max:37.5 ?C (99.5 ?F) BP 161/93 Pulse 96 Temp 37.5 ?C (99.5 ?F) (Oral) Resp 17 Ht 167.6 cm (5' 6 ) Wt 66.2 kg (145 lb 15.1 oz) SpO2 97% BMI 23.56 kg/m? O2 Therapy: Room Air IANDO: Date 10/26/22699 - 10/27/2259 10/27/22 07 - 10/28/22 0659 Shift 0393-2850 3112-6714 6213-8274 24 Hour Total 9040-9905 4840-6774 5413-3527 24 Hour Total INTAKE IV 1800 1800 Volume (mL) (tranexamic acid (CYKLOKAPRON) in NaCl 0.7% 1,000 mg 100 mL) 100 100 Volume (mL) (lactated ringers iv infusion) 1700 1700 Shift Total 1800 1800 OUTPUT Urine 200 1200 1400 OR Urine Output 200 200 Output ([REMOVED] Indwelling Urinary Catheter 10/26/22 0245 [facility] Day 16 Fr 10/27/22 0521) 1200 1200 Blood 150 150 Estimated Blood loss 150 150 Shift Total 350 1200 1550 Weight (kg) 68 66.2 66.2 66.2 66.2 66.2 66.2 66.2 MEDICATIONS Current Facility-Administered Medications Medication Dose Route Frequency losartan 100 mg tab(s) (COZAAR) 100 mg ORAL DAILY senna-docusate 8.6-50 mg 1 tablet (SENNA-S) 1 tablet ORAL BID pantoprazole DR 40 mg tab(s) (PROTONIX) 40 mg ORAL DAILY (6 AM) oxyCODONE IR 5-10 mg tab(s) (ROXICODONE) 5-10 mg ORAL q 6 H PRN acetaminophen 975 mg tab(s) (TYLENOL) 975 mg ORAL QID ondansetron (PF) 4 mg injection (ZOFRAN) 4 mg INTRAVENOUS q 6 H PRN enoxaparin 30 mg injection (LOVENOX) 30 mg SUBCUTANEOUS q 12 HR NaCl 0.9% iv flush bag 20 mL INTRAVENOUS PRN Labs: Recent Labs 10/27/22 0053 10/26/22 0441 10/25/22 2212 NA 136 135* 136 K 4.2 -- 3.6* CHLOR 101 103 104 CO2 22 20* 19* BUN 8* 8* 7* CREAT 0.79 0.74 0.77 GLUC 185* 127* 125* ANION 13 12 13 CA 9.0 8.9 8.7 ALB -- -- 3.8* AST -- -- 26 ALT -- -- 18 ALKPHOS -- -- 89 TBILI -- -- 0.6 WBC 11.44* 8.06 11.34* HB 9.7* 11.8* 12.0* HCT 28.6* 34.9* 34.4* PLT 191 193 208 INR -- -- 1.0 PHYSICAL EXAM: Genl: Appears age appropriate. No acute distress. Resting comfortably. Head/Face: Normocephalic. Atraumatic. Eyes: EOMI. Sclera not icteric, not injected Resp: No audible wheezes. Breathing is non-labored on RA @97%. CVS: HR as above; 2+ pulses at RA, DP bilat. GI: Abdomen is soft, non-tender, not distended. No peritonitis. MSK: Extremities without clubbing, cyanosis, edema. Normal ROM x 3. RLE surgical dressing is C/D/I. Left left laceration s/p repaired with sutures is covered with a C/D/I dressing. Right elbow abrasion covered with dressing. Skin: Warm and dry. Not jaundiced. Neuro: AANDOx3. Strength and sensation normal. DICKERSON. GCS15. Psych: Normal mood. Normal affect. Appropriate insight into current situation. ASSESSMENT AND PLAN: Active Hospital Problems Diagnosis Date Noted Trauma 10/26/2022 Fall 10/27/2022 Abrasion of right elbow 10/27/2022 HTN (hypertension) Chronic GERD (gastroesophageal reflux disease) Chronic Leg laceration, left, initial encounter Closed fracture of multiple pubic rami, right, initial encounter ([facility]) Closed displaced associated transverse-posterior fracture of right acetabulum ([facility]) 10/26/2022 72 year old male s/p fall from ladder on 10/25/2022. Trauma transfer from outside ED. Imaging performed: CT H/N/C/A/P, PXR, XR L tibia/fibula, XR R forearm/elbow on 10/25/2022 PXR x 2 and XR bilateral knees on 10/26/2022 Traumatic Injuries: Right elbow abrasion Left lower leg laceration Comminuted right acetabular fracture with pelvic sidewall hematoma Right inferior and superior pubic rami fractures Operations/Procedures: 1. Left leg laceration repair with sutures in the ED on 10/26/2022 2. ORIF right acetabulum fracture on 10/26/2022 (Dr. Funez) Care Plan: Right acetabulum fracture, R pubic rami fractures, and R pelvic sidewall hematoma: Orthopedic surgery consulted and following along POD#1 s/p ORIF R acetabulum TDWB RLE Ancef has been completed TXA given upon admission Hg has been stable - continue to trend q 24 Okay for DVT ppx - will need 21 days per orthopedic surgery Pain control Continue PT/OT Follow up with Dr. Funez as an outpatient Right elbow abrasion and left leg laceration: Local (more content not included)... [facility] documented as of this encounter (statuses as of 10/31/2022) [facility]07-13-2023 History of Past illness Narrative* Problem Noted Date Diagnosed Date Resolved Date Fall 10/27/2022 10/29/2022 Trauma 10/26/2022 10/29/2022 documented as of this encounter (statuses as of 11/01/2022) [facility]-13-2023 History of Past illness Narrative* Problem Noted Date Diagnosed Date Resolved Date Fall 10/27/2022 10/29/2022 Trauma 10/26/2022 10/29/2022 documented as of this encounter (statuses as of 12/06/2022) [facility]2023 History of Past illness Narrative* Problem Noted Date Diagnosed Date Resolved Date Fall 10/27/2022 10/29/2022 Trauma 10/26/2022 10/29/2022 documented as of this encounter (statuses as of 12/06/2022) [address]13-2023 History of Past illness Narrative* Problem Noted Date Diagnosed Date Resolved Date Fall 10/27/2022 10/29/2022 Trauma 10/26/2022 10/29/2022 documented as of this encounter (statuses as of 01/07/2023) [address]13-2023 History of Past illness Narrative* Problem Noted Date Diagnosed Date Resolved Date Fall 10/27/2022 10/29/2022 Trauma 10/26/2022 10/29/2022 documented as of this encounter (statuses as of 02/08/2023) [address]13-2023 History of Past illness Narrative* Problem Noted Date Diagnosed Date Resolved Date Fall 10/27/2022 10/29/2022 Trauma 10/26/2022 10/29/2022 documented as of this encounter (statuses as of 02/19/2023) [address]13-2023 History of Past illness Narrative* Problem Noted Date Diagnosed Date Resolved Date Fall 10/27/2022 10/29/2022 Trauma 10/26/2022 10/29/2022 documented as of this encounter (statuses as of 03/15/2023) [address]13-2023 NoteHNO ID: [id number] Author: Rachel Funez MD Service: Orthopaedic Surgery Author Type: Physician Type: Progress Notes Filed: 10/27/2022 3:01 PM Note Text: ORTHOPAEDIC SURGERY DAILY PROGRESS NOTE ASSESMENT: 72 year old M POD #1 s/p ORIF R acetabulum fracture. PLAN: - Management per trauma - Pain control. - Weight Bearing Status: TDWB RLE. - Dressing(s): Mepilex x 2 for 7 days to anterior incisions - PT/OT: Evaluation AND recommendations. - DVT PPx: SCDs. Recommend Lovenox 30 mg BID x 21 days. - Antibiotic PPx: Ancef 2 g Q8H x 2 doses ongoing - GI PPX: per trauma - Day: per trauma. - XR pelvis with stable ortho hardware - Anticipated Length of Stay/Disposition: per trauma, no further orthopedic surgical intervention anticipated. INTERVAL HPI: No acute events overnight. Pain controlled. Denies fevers and chills. Denies chest pain and shortness of breath. OBJECTIVE: BP 142/75 Pulse 90 Temp 37 ?C (98.6 ?F) (Oral) Resp 16 Ht 167.6 cm (5' 6 ) Wt 66.2 kg (145 lb 15.1 oz) SpO2 98% BMI 23.56 kg/m? Exam: General: NAD, AOx3 Right Lower Extremity: Dressing clean, dry and intact. Compartments of the thigh and leg soft and compressible. Tolerates passive stretch of digits. SILT Ramon/Sa/SP/DP/T. Motor intact EHL/FHL/G/S. 2+ DP/PT pulses. BCR. Recent Labs 10/27/22 0053 10/26/22 0441 10/25/22 2212 CREAT 0.79 0.74 0.77 BUN 8* 8* 7* NA 136 135* 136 K 4.2 -- 3.6* CHLOR 101 103 104 CO2 22 20* 19* ANION 13 12 13 GLUC 185* 127* 125* CA 9.0 8.9 8.7 ALB -- -- 3.8* AST -- -- 26 ALT -- -- 18 ALKPHOS -- -- 89 TBILI -- -- 0.6 WBC 11.44* 8.06 11.34* HB 9.7* 11.8* 12.0* HCT 28.6* 34.9* 34.4* PLT 191 193 208 COAGS: APTT 24.4 10/25/2022 INR 1.0 10/25/2022 SED RATE/CRP: No results found for this basename: wsr:*,crp:* SIGNATURE: Adrián Armenta MD PATIENT NAME: Yasir Montile DATE: 10/27/22 TIME: 6:21 AM PAGER/CONTACT #: [phone] Attending Note I personally saw and examined the patient. I reviewed the resident's note. I agree with the resident's assessment and plan unless otherwise noted. Signature: Rachel Funez MD Date: 10/27/2022 Time: 3:01 [facility]07-12-2023 NoteHNO ID: [id number] Author: Linda Jay RN Service: ? Author Type: Registered Nurse Type: Progress Notes Filed: 10/26/2022 8:56 PM Note Text: Pt resting comfortably at this time.[facility]07-12-2023 Note HNO ID: [id number] Author: Cony Poe APRN.FARM SERVICE ADVISER Service: Anesthesiology Author Type: Nurse Yeast Stacker Type: Anesthesia Procedure Notes Filed: 10/26/2022 12:10 PM Note Text: ANESTHESIOLOGY PROCEDURE NOTE Airway General Information Procedure Start Time/Medication Administration: 10/26/2022 11:17 AM Patient location during procedure: OR Consent Obtained: Yes Patient identity confirmed: arm band Staffing FARM SERVICE ADVISER: Cony Poe APRN.FARM SERVICE ADVISER Performed by: FARM SERVICE ADVISER Indications and Patient Condition Indications for airway management: anesthesia Preoxygenated: yes anesthesia circuit Patient position: sniffing Method: asleep Cricoid Pressure: Yes Difficult Mask: No Airway Accessory: oral airway Final Airway Details Final airway type: endotracheal airway Final Endotracheal Airway: ETT Cuffed: yes Successful intubation technique: direct laryngoscopy Devices used: intubating stylet Endotracheal tube insertion site: oral Blade: Jim Blade size: #4 ETT size (mm): 7.5 Measured from: lips Measurement (cm): 22 Placement verified by: chest auscultation and capnometry Cormack-Lehane Classification: grade I - full view of glottis Number of attempts at approach: 1 SIGNATURE: Cony Poe APRN.FARM SERVICE ADVISER PATIENT NAME: Yasir Montiel DATE: October 26, 2022 TIME: 12:09 PM CSN: [id number]* Diagnosis Closed displaced combined transverse-posterior fracture of right acetabulum with routine healing, subsequent encounter- Primary documented in this encounter [facility] note* Diagnosis Closed displaced combined transverse-posterior fracture of right acetabulum, initial encounter ([facility])- Primary documented in this encounter [facility] note* Diagnosis Closed displaced combined transverse-posterior fracture of right acetabulum with routine healing, subsequent encounter documented in this encounter [facility] for referral (narrative)* Diagnostic Procedure Only (Routine) - Pending Review Specialty Diagnoses / Procedures Referred By Edd marcelino Referred To Contact XR IMAGING Diagnoses Closed displaced combined transverse-posterior fracture of right acetabulum with routine healing, subsequent encounter Procedures XR PELVIS 1V AP RADIOLOGIC EXAMINATION PELVIS 1/2 VIEWS Rachel Funez MD [address] [address] [place] [address] Referral ID Status Reason Start Date Expiration Date Visits Requested Visits Authorized [id number] Pending Review Auto-Generat ed Referral 12/06/2022 01/05/2024 1 1 * Diagnostic Procedure Only (Routine) - Pending Review Specialty Diagnoses / Procedures Referred By Contac t Referred To Contact XR IMAGING Diagnoses Closed displaced combined transverse-posterior fracture of right acetabulum with routine healing, subsequent encounter Procedures XR PELVIS 1V AP RADIOLOGIC EXAMINATION PELVIS 1/2 VIEWS Rachel Funez MD [address] [place] [id number] [place] [address] Referral ID Status Reason Start Date Expiration Date Visits Requested Visits Authorized [id number] Pending Review Auto-Generat ed Referral 12/06/2022 01/03/2024 1 1 [facility] for visit Narrative* Diagnostic Procedure Only (Routine) - Closed Specialty Diagnoses / Procedures Referred By Contac t Referred To Contact XR IMAGING Diagnoses Closed displaced combined transverse-posterior fracture of right acetabulum with routine healing, subsequent encounter Procedures XR PELVIS 1V AP RADIOLOGIC EXAMINATION PELVIS 1/2 VIEWS Rachel Funez MD [address] [place] [address] [place] [address] Referral ID Status Reason Start Date Expiration Date V isits Requested Visits Authorized [id number] Closed Auto-Generate d Referral 12/06/2022 01/05/2024 1 1 [facility] for visit Narrative* Diagnostic Procedure Only (Routine) - Closed Specialty Diagnoses / Procedures Referred By Contac t Referred To Contact XR IMAGING Diagnoses Closed displaced combined transverse-posterior fracture of right acetabulum with routine healing, subsequent encounter Procedures XR PELVIS 1V AP RADIOLOGIC EXAMINATION PELVIS 1/2 VIEWS Rachel Funez MD [address] [place] [id number] [place] [id number] Referral ID Status Reason Start Date Expiration Date V isits Requested Visits Authorized [id number] Closed Auto-Generate d Referral 01/12/2023 02/11/2024 [address] [facility] Diagnostic Procedure Only (Routine) - Closed Specialty Diagnoses / Procedures Referred By Edd t Referred To Contact XR IMAGING Diagnoses Closed displaced combined transverse-posterior fracture of right acetabulum with routine healing, subsequent encounter Procedures XR PELVIS 1V AP RADIOLOGIC EXAMINATION PELVIS 1/2 VIEWS Rachel Funez MD [address] [place] [address] [place] [address] Referral ID Status Reason Start Date Expiration Date V isits Requested Visits Authorized [id number] Closed Auto-Generate d Referral 03/10/2023 03/08/2024 [address] [facility] Summary Purpose Family History No Family History Records FoundNo Family History Records Found Advance Directives No Advanced Directives Records FoundNo Advanced Directives Records Found Additional Source Comments Source Comments (unrecognize d section and content) In the event this informatio n is protected by the Federal Confidentiality of Alcohol and Drug Abuse Patient Records regulations: The Federal rules restrict any use of the information to criminally investigate or prosecute any alcohol or drug abuse patient.[facility] the event this information is protected by the Federal Confidentiality of Alcohol and Drug Abuse Patient Records regulations: The Federal rules restrict any use of the information to criminally investigate or prosecute any alcohol or drug abuse patient.[facility] the event this information is protected by the Federal Confidentiality of Alcohol and Drug Abuse Patient Records regulations: The Federal rules restrict any use of the information to criminally investigate or prosecute any alcohol or drug abuse patient.[facility] the event this information is protected by the Federal Confidentiality of Alcohol and Drug Abuse Patient Records regulations: The Federal rules restrict any use of the information to criminally investigate or prosecute any alcohol or drug abuse patient.[facility] the event this information is protected by the Federal Confidentiality of Alcohol and Drug Abuse Patient Records regulations: The Federal rules restrict any use of the information to criminally investigate or prosecute any alcohol or drug abuse patient.[facility] the event this information is protected by the Federal Confidentiality of Alcohol and Drug Abuse Patient Records regulations: The Federal rules restrict any use of the information to criminally investigate or prosecute any alcohol or drug abuse patient.[facility] the event this information is protected by the Federal Confidentiality of Alcohol and Drug Abuse Patient Records regulations: The Federal rules restrict any use of the information to criminally investigate or prosecute any alcohol or drug abuse patient.[facility] the event this information is protected by the Federal Confidentiality of Alcohol and Drug Abuse Patient Records regulations: The Federal rules restrict any use of the information to criminally investigate or prosecute any alcohol or drug abuse patient.[facility] the event this information is protected by the Federal Confidentiality of Alcohol and Drug Abuse Patient Records regulations: The Federal rules restrict any use of the information to criminally investigate or prosecute any alcohol or drug abuse patient.[facility] Reason for Visit (unrecogniz ed section and content) Reason Comments Patient Update Reason Comments Established Patient Follow Up Pain Post Op Reason Comments Orders Care Teams (unrecognized sec tion and content) Direct Sales Consultant Relationship Specialty Start Date End Date Jeff Thomas MD [address] [place] [id number] PCP - General Family Medicine 10/27/22 Direct Sales Consultant Relationship Specialty Start Date End Date Jeff Thomas MD [address] [facility] [address] [place] [address] PCP - General Family [facility] 10/27/22 Direct Sales Consultant Relationship Specialty Start Date End Date Jeff Thomas MD [address] [facility] [address] [place] [address] PCP - General Family [facility] 10/27/22 Direct Sales Consultant Relationship Specialty Start Date End Date Jeff Thomas MD [address] [facility] [address] [place] [address] PCP - [facility] 10/27/22 Direct Sales Consultant Relationship Specialty Start Date End Date Jeff Thomas MD [address] [facility] [address] [place] [address] PCP - General [facility] 10/27/22 Direct Sales Consultant Relationship Specialty Start Date End Date Jeff Thomas MD [address] [facility] [address] [place] [address] PCP - General [facility] 10/27/22 Direct Sales Consultant Relationship Specialty Start Date End Date Jeff Thomas MD [address] [facility] [address] [place] [address] PCP - General [facility] 10/27/22 (unrecognized sect ion and content) No Status Records FoundNo Status Records Found INFORMATION SOURCE (unrecogn ized section and content) DATE CREATED AUTHOR AUTHOR'S ORGANIZ ATION 03/19/2023 [facility] FOR RECORDS PERTAINING TO PATIENTS WHO ARE OR HAVE BEEN ENROLLED IN A CHEMICAL DEPENDENCY/SUBSTANCEABUSE PROGRAM, SOME INFORMATION MAY BE OMITTED. This clinical summary was aggregated from multiple sources. Caution should be exercised in using it in the provision of clinical care. This summary normalizes information from multiple sources, and as a consequence, information in this document may materially change the coding, format and clinical context of patient data. In addition, data may be omitted in some cases. CLINICAL DECISIONS SHOULD BE BASED ON THE PRIMARY CLINICAL RECORDS. [email or web address] [facility]. provides no warranty or guarantee of the accuracy or completeness of information in this document.
== END | disposition home or self-care (01) ==
LOC: MTLAB 10:52
PROVIDERS: PCP Family Medicine; Referring Provider Physician Assistant; Visit Provider Physician Assistant
DX: L40.0 Psoriasis vulgaris (principal)
CPT/HCPCS: 36415; 86706; 87340

== ENCOUNTER → 2023-06-22 | Outpatient (CLI) | payer MEDICARE, OTHER, SELFPAY ==
[2023-06-22 18:12] LABS: Hemoglobin A1c 5.4 % (3.8-5.6)
[2023-06-22 18:14] LABS: Anion Gap 11 (5-15); BUN 9 mg/dL (7-18); BUN/Creat Ratio 10.4 RATIO (10-20); Calcium,Total 10.8 mg/dL (8.5-10.1); Chloride 103 mmol/L (98-107); Creatinine, Serum 0.87 mg/dL (0.70-1.30); EST Glomerular Filtration Rate 92 mL/min (>60); Est Glom Filt Rate - Afr Amer 111 mL/min (>60); Glucose 112 mg/dL (74-106); Potassium 3.7 mmol/L (3.5-5.1); Sodium Level 137 mmol/L (136-145)
--- OUTSIDE RECORDS SUMMARY | 2023-06-22 20:33 | XMS RPT_ITS | CCD ---
Author Name Unknown Address [address] [place] [address] [address] [place] [address] Organization [facility] Care Team Providers Care Dub Room Engineer Name Role Phone Jeff Thomas MD Primary Care Provider [phone] CONY CLEMENT Admitting Unavailable RACHEL FUNEZ Consulting [...] [IODINE] Drug Allergy 04-18-2013 Other: See Comments [facility] Medications Current Medications Medication Drug Class(es) Dates Sig (Normalized) Sig (Original) docusate sodium 50 mg / sennosides, assisted 8.6 mg oral tablet (2 sources) Start: [...] [Closed fracture of right hip, initial encounter ([facility])] Onset: 10-25-2022 Episodic Other fractures (2 sources) [...] of multiple pubic rami, right, initial encounter ([facility])] Onset: 10-29-2022 Episodic Other fractures (1 source) Displaced associated transverse-posterio r fracture of right acetabulum, initial encounter for closed fracture; Translations: [Closed displaced combined transverse-posterio r fracture of right acetabulum, initial encounter ([facility])] Onset: 10-29-2022 Episodic Superficial injury; contusion (9 sources) Abrasion of right elbow, initial encounter; Translations: [Abrasion or friction burn of elbow, forearm, and wrist, without mention of infection] Onset: 10-27-2022 10-29-2022 Episodic Results Test Name Value Interpretation Reference Range Facil ity Vital Signs Date Time Vital Sign Value Performing Clinician Faci lit 12-06-2022 09:23-0400 Body height 167.6 cm Rachel Funez MD Work Phone: [facility] 12-06-2022 09:230400 Body weight 65.77 kg Rachel Funez MD Work Phone: [facility] 12-06-2022 09:23-0400 Respiratory rate 18 /min Rachel Funez MD Work Phone: [facility] Encounters Encounter Date Encounter Type Care Provider Facility Start: 03-14-2023 End: 03-14-2023 ambulatory RACHEL FUNEZ Facility:[facility] Start: 03-14-2023 End: 03-14-2023 Subsequent hospital visit by physician Celena [facility] Yossi Salamanca Work Phone: Radiology Procedures Date [...] DTaP,Tdap,Td Vaccine (2 - Td or Tdap) [facility] Start: 10-29-2025 DIABETES SCREEN DIABETES SCREEN [facility] Start: 10-29-2025 Diabetes Screening Diabetes Screening [facility] Start: 12-16-2022 Covid-19 Vaccine () Covid-19 Vaccine () [facility] Start: 12-16-2022 Influenza vaccination [facility] Start: 04-17-2022 ADVANCE DIRECTIVE DISCUSSION ADVANCE DIRECTIVE DISCUSSION [facility] Start: 04-17-2022 DEPRESSION ASSESSMENT DEPRESSION ASSESSMENT [facility] Start: 08-26-2020 COVID-19 VACCINE (3 - Moderna series) COVID-19 VACCINE (3 - Moderna series) [facility] Start: 02-11-2017 Pneumococcal Vaccine: 65+ (2 - PPSV23 or PCV20) Pneumococcal Vaccine: 65+ (2 - PPSV23 or PCV20) [facility] Start: 2015 Pneumococcal Vaccine: 65+ (1 - PCV) Pneumococcal Vaccine: 65+ (1 - PCV) [facility] Start: 2015 PNEUMOCOCCAL: 65+ (1 - PCV) PNEUMOCOCCAL: 65+ (1 - PCV) [facility] Start: 2010 RSV Vaccine (1 - 1-dose 60+ series) RSV Vaccine (1 - 1-dose 60+ series) [facility] Start: 01-07-2000 SHINGRIX VACCINE (1 of 2) SHINGRIX VACCINE (1 of 2) [facility] Start: 1995 COLOGUARD (FIT-DNA) COLOGUARD (FIT-DNA) [facility] Start: 1995 Colonoscopy COLONOSCOPY [facility] Start: 1995 COLORECTAL CANCER SCREENING COLORECTAL CANCER SCREENING [facility] Start: [address] COLONOGRAPHY [facility] Start: 1995 FECAL OCCULT BLOOD FECAL OCCULT BLOOD [facility] Start: 1995 SIGMOIDOSCOPY SIGMOIDOSCOPY [facility] Start: 1985 Lipid 1996 panel - Serum or Plasma Lipid Screening [facility] Start: 1985 LIPID SCREEN LIPID SCREEN [facility] Start: 1969 Urine microalbumin profile [facility] Start: 01-07-1968 ANNUAL PCP TEAM CHRONIC DISEASE VISIT ANNUAL PCP TEAM CHRONIC DISEASE VISIT [facility] Start: 01-07-1968 BP CONTROLLED (<130/80) BP CONTROLLED (<130/80) [facility] Start: 01-07-1968 HEPATITIS C SCREENING HEPATITIS C SCREENING [facility] Radiologic examinati on pelvis 1/2 views XR PELVIS 1V AP Radiology Routine Closed displaced combined transverse-posterior fracture of right acetabulum with routine healing, subsequent encounter Ordered: 12/06/2022 [facility] Work Phone: Immunizations Immunization Date Immunization Notes Care Provider Fa cility 01-09-2019 influenza virus vacc ine, unspecified formulation Rachel Funez MD Work Phone: [facility] Payers Date Payer Category Payer Medicare MEDICARE MEDICAR E A AND B [id number] 2019-Present [phone] [address] [address] [place] [address] Medicare [id number] 2019 Medicare [id number] 2019 Medicare [id number] 2019 Unknown MMO MMO MEDICARE SUPPLEMENT [id number] 2019-Present [phone] [address] [place] [address] Indemnity [id number] Social History Date Type Detail Facility [facility] Start: 10-26-2022 End: 12-06-2022 Alcohol intake Not Asked [facility] Start: 10-26-2022 End: 12-06-2022 History of Social function [facility] Start: 10-26-2022 End: 12-06-2022 Tobacco use panel [facility] National Score (1-10 0), lower number is lower risk 55 [facility] Start: 1950 [facility] Start: 10-26-2022 Gender identity Identifies as male gender (finding) [facility] Start: 10-26-2022 Sexual orientation Heterosexual (mauricio pugh) [facility] Medical Equipment Procedure Code Equipment Code Equipment Origin al Text Equipment Identifier Dates Screw Bone 2.5mm Fulthd Hexagon 3.5mm 75mm Self Tap Axsos [id number] Start: 10-26-2022 Screw Axsos 3.5m m 2.5mm Full Thread Hexagon Stainless Steel 50mm Bone Self - [id number] Start: 10-26-2022 Clinical Notes 10-26-2022 to 03-14-2023 Telephone Encounter - [place] - 02/08/2023 10:31 AM Sierra Acosta RT(Nica) - 02/06/2023 9:30 AM EDTTelephone Encounter - [place] - 12/06/2022 12:57 PM EDT Note Date & Type Note Facility 03-14-2023 Note HNO ID: [id number] Author: Mony Simmons RT(Nica) Service: ? Author Type: Director Group Sales Type: Progress Notes Filed: 03/14/2023 11:56 AM [...] RT Pablo(Nica) March 14, 2023 11:43 AM [facility] 02-08-2023 Miscellaneous Notes Formattin g of this note might be different from the original. Called to inform the patient that the order is in his chart ready to go. Also told him that if he goes to a facility outside of [facility] I would be happy to fax it to them. He understood. [place] February 08, 2023 10:36 AM documented in this encounter [facility] 02-06-2023 Note HNO ID: [id number] Author: Sierra Cuellar RT(Nica) Service: ? Author [...] RT Louis(R) February 06, 2023 9:49 AM [facility] 02-06-2023 History of Presen t [...] 2023 9:49 AM documented in this encounter [facility] 01-02-2023 Note HNO ID: [id number] Author: Mony Simmons RT(Nica) Service: ? Author Type: Director Group Sales Type: Progress Notes Filed: 01/02/2023 10:07 AM [...] RT Pablo(R) January 02, 2023 10:06 AM [facility] 12-06-2022 Miscellaneous Notes Formattin g of this note might be different from the original. Ed at [facility] called asking about the patient's weightbearing status. Let him know of the update. [place] December 06, 2022 12:59 PM documented in this encounter [facility] 12-06-2022 Note HNO ID: [id number] Author: Rachel Funez MD Service: ? Author [...] to have this done at his home [facility] institution. Following this x-ray, I will contact him with the results. We will then begin outpatient physical therapy. There are any questions or concerns prior to the next encounter, they will contact the office. Their questions were answered. [facility] 12-06-2022 History of Presen t illness [...] to have this done at his home [facility] institution. Following this x-ray, I will contact him with the results. We will then begin outpatient physical therapy. There are any questions or concerns prior to the next encounter, they will contact the office. Their questions were answered. documented in this encounter [facility] 11-15-2022 Note HNO ID: [id number] Author: Rachel Funez MD Service: ? Author [...] Questions answered. They will continue with Lovenox. [facility] 10-31-2022 Miscellaneous Notes Formattin g of [...] Mobility training. Ema documented in this encounter [facility] 10-31-2022 Miscellaneous Notes Formattin g of this note might be different from the original. Called and spoke with Marcela from [facility] [phone] and informed her of what the doctor [...] know. Ema Chu documented in this encounter [facility] 10-29-2022 Note HNO ID: [id number] Author: Madalyn Ocasio RN Service: Care Management [...] Care Type: Home Health Agency Provider Name: [facility] Caregiver Assessment Caregiver is ready, willing and able to meet the patient's needs as recommended by the inter-professional team: No Caregiver needed Transportation Arrangements Transportation Arrangements: Car Handoff Communication: Handoff to: Primary Care Physician Primary Care Physician Name/Phone: Jeff Thomas MD, Additional Information: Discharge Information Row Name ED to Hosp-Admission (Current) from 10/25/[address] [facility] Care Agency [facility] Pt is being discharged home with services from [facility] and a hospital bed from [facility]. Hospital bed will be delivered on Monday. Discharge instructions faxed to [facility] at [phone]. Pt's to transport him home. SIGNATURE: Madalyn Ocasio RN, BSN PATIENT NAME: Yasir Montiel DATE: October 29, 2022 TIME: 10:45 AM CONTACT #: [phone] [facility] 10-29-2022 Note HNO ID: [id number] Author: Adalgisa Cortes APRN.EVONNE Service: General Surgery [...] 0659 10/29/22 07 - 10/30/22 0659 Shift 2649-9995 4001-7302 9744-7194 24 Hour Total 4792-2420 6813-2506 0430-0825 24 Hour Total INTAKE PO 120 120 [...] of multiple pubic rami, right, initial encounter ([facility]) Closed displaced associated transverse-posterior fracture of right acetabulum ([facility]) 10/26/2022 72 year old male s/p fall [...] today with C. (more content not included)... [facility] 10-28-2022 Note HNO ID: [id number] Author: America Nguyen RN Service: Care Management Author Type: Registered Nurse Type: Care Mgt Progress Note Filed: 10/28/2022 1:03 PM Note Text: CARE MANAGEMENT PROGRESS NOTE SERVICE DATE: 10/28/2022 SERVICE TIME: 12:59 PM LOS: 2 days DC Plan: Home with HHC through [facility], pt still refusing SNF, [facility] able to accept, ADOD for Monday, [facility] able to do SOC on Monday ; [facility] stated that they don't have access to allscripts over the weekend so will need discharge summary note faxed to [phone] (Attention to: Intake) ; confirmed with [facility] that hospital bed will be delivered on Monday, pt has access to wheeled walker at home Barriers to dc: monitoring HGB Anticipated dc date: Sunday 10/29 Transportation: pt states he would like for his to provide transportation home SIGNATURE: America Nguyen RN PATIENT NAME: Yasir Montiel DATE: October 28, 2022 TIME: 12:59 PM PAGER/CONTACT #: [phone] [facility] 10-28-2022 Note HNO ID: [id number] Author: Rachel Greenberg PA-C Service: General Surgery Author Type: Physician Buttonhole Marker Type: Progress Notes Filed: 10/28/2022 12:50 PM Note Text: Trauma Surgery Progress Note SERVICE DATE: 10/28/2022 Trauma Service Pager: For questions or concerns Mon-Fri 6a-5p please page [phone]. After 5pm and on Weekends and Holidays, please page [phone] if in ICU or [phone] if on RNF. SUBJECTIVE: Patient is POD#2 [...] 10/28/22 0659 10/28/22699 - 10/29/22 0659 Shift 0244-0615 3607-8374 1579-7833 24 Hour Total 5549-5754 1392-6887 4797-1576 24 Hour Total INTAKE Shift Total OUTPUT [...] of multiple pubic rami, right, initial encounter ([facility]) Closed displaced associated transverse-posterior fracture of right acetabulum ([facility]) 10/26/2022 72 year old male s/p fall [...] evaluations and suture (more content not included)... [facility] 10-28-2022 Note HNO ID: [id number] Author: America Nguyen RN Service: Care Management [...] 28, 2022 TIME: 10:59 AM PAGER/CONTACT #: [phone] [facility] 10-28-2022 Note HNO ID: [id number] Author: Rachel Funez MD Service: Orthopaedic Surgery [...] 1410 Agree with resident assessment and plan. [facility] 10-27-2022 Note HNO ID: [id number] Author: America Nguyen RN Service: Care Management Author Type: Registered Nurse Type: Care Mgt Initial Assessment Filed: 10/27/2022 1:55 PM Note Text: CARE MANAGEMENT: ASSESSMENT AND DISCHARGE PLAN SERVICE DATE: October 27, 2022 SERVICE TIME: 1:49 PM PCP: Jeff Thomas MD Primary Contact: Extended Emergency Contact Information Primary Emergency Contact: Reva Montiel Address: [address] [place] [address] Relation: Spouse Secondary Emergency Contact: Emmanuel Montiel Address: [address] [place] [address] Mobile Relation: Son Admission Status: Inpatient Insurance Provider: MEDICARE A AND B Discharge Planning requested by: Per Department Practice Potential Transition Plans Home OT/PT;Durable Medical Equipment Advance Directives Current Advance Directive: None Certified Endoscopy Technician Attempted to Assist with AD Completion: Yes [...] Goal(s): Ambulate a little better, General wellness Center of Choice Explained: Center of Choice Given: No Reason Not [...] he will need transportation set up at ne, would like to see how he does with mobility tomorrow Equipment Prior to Admission: has access to wheeled walker Support: pt's able to assist at ne Pharmacy: [facility] PCP: Jeff Thomas Spoke with pt for initial assessment, pt from home with , not active with home care, discussed pt/ot's recs for snf, pt is hopeful to progress and go home with home pt/ot , pt does not have preference for [facility] agency and agreeable to sending multiple home care referrals Patient has access to wheeled walker but states that his bed is on the second floor , pt interested in ordering a hospital bed, pt does not have preference for [employer] , order placed for hospital bed through [facility] on [address]; pt would like to see how he does with mobility tomorrow to decide if he would need wheelchair transportation at ne SIGNATURE: America Nguyen RN PATIENT NAME: Yasir Montiel DATE: October 27, 2022 TIME: 1:49 PM CONTACT #: [phone] [facility] 10-27-2022 Note HNO ID: [id number] Author: Rachel Greenberg PA-C Service: General Surgery Author Type: Physician Buttonhole Marker Type: Progress Notes Filed: 10/27/2022 12:51 PM Note Text: Trauma Surgery Progress Note SERVICE DATE: 10/27/2022 Trauma Service Pager: For questions or concerns Mon-Fri 6a-5p please page [phone]. After 5pm and on Weekends and Holidays, please page [phone] if in ICU or [phone] if on RNF. SUBJECTIVE: Patient is POD#1 [...] 10/27/2259 10/27/22 07 - 10/28/22 0659 Shift 8643-1710 7591-5704 1961-1365 24 Hour Total 1903-7257 9305-1387 7203-4600 24 Hour Total INTAKE IV 1800 1800 Volume (mL) (tranexamic acid (CYKLOKAPRON) in NaCl 0.7% 1,000 mg 100 mL) 100 100 Volume (mL) (lactated ringers iv infusion) 1700 1700 Shift Total 1800 1800 OUTPUT Urine 200 1200 1400 OR Urine Output 200 200 Output ([REMOVED] Indwelling Urinary Catheter 10/26/22 0245 [facility] Day 16 Fr 10/27/22 0521) 1200 [...] leg laceration: Local (more content not included)... [facility] documented as of this encounter (statuses as of 10/31/2022) [facility]07-13-2023 History of Past illness Narrative* Problem Noted Date Diagnosed Date Resolved Date Fall 10/27/2022 10/29/2022 Trauma 10/26/2022 10/29/2022 documented as of this encounter (statuses as of 11/01/2022) [facility]-13-2023 History of Past illness Narrative* Problem Noted Date Diagnosed Date Resolved Date Fall 10/27/2022 10/29/2022 Trauma 10/26/2022 10/29/2022 documented as of this encounter (statuses as of 12/06/2022) [facility]20[facility] History of Past illness Narrative* Problem Noted Date Diagnosed Date Resolved Date Fall 10/27/2022 10/29/2022 Trauma 10/26/2022 10/29/2022 documented as of this encounter (statuses as of 12/06/2022) [address]13-2023 History of Past illness Narrative* Problem Noted Date Diagnosed Date Resolved Date Fall 10/27/2022 10/29/2022 Trauma 10/26/2022 10/29/2022 documented as of this encounter (statuses as of 01/07/2023) [address]13-2023 History of Past illness Narrative* Problem Noted Date Diagnosed Date Resolved Date Fall 10/27/2022 10/29/2022 Trauma 10/26/2022 10/29/2022 documented as of this encounter (statuses as of 02/08/2023) [address]13-2023 History of Past illness Narrative* Problem Noted Date Diagnosed Date Resolved Date Fall 10/27/2022 10/29/2022 Trauma 10/26/2022 10/29/2022 documented as of this encounter (statuses as of 02/19/2023) [address]13-2023 History of Past illness Narrative* Problem Noted Date Diagnosed Date Resolved Date Fall 10/27/2022 10/29/2022 Trauma 10/26/2022 10/29/2022 documented as of this encounter (statuses as of 03/15/2023) [address]13-2023 NoteHNO ID: [id number] Author: Rachel Funez MD Service: Orthopaedic Surgery [...] Armenta MD PATIENT NAME: Yasir Montiel DATE: 10/27/22 TIME: 6:21 AM PAGER/CONTACT #: [phone] Attending Note I personally saw and examined the patient. I reviewed the resident's note. I agree with the resident's assessment and plan unless otherwise noted. Signature: Rachel Funez MD Date: 10/27/2022 Time: 3:01 [facility]07-12-2023 NoteHNO ID: [id number] Author: Linda Jay RN Service: ? Author Type: Registered Nurse Type: Progress Notes Filed: 10/26/2022 8:56 PM Note Text: Pt resting comfortably at this time.[facility]07-12-2023 Note HNO ID: [id number] Author: Cony Poe APRN.SUPERVISOR PRODUCTION DEPARTMENT Service: Anesthesiology Author Type: Nurse Aluminum Boat Inspector Type: Anesthesia Procedure Notes Filed: 10/26/2022 12:10 PM Note Text: ANESTHESIOLOGY PROCEDURE NOTE Airway General Information Procedure Start Time/Medication Administration: 10/26/2022 11:17 AM Patient location during procedure: OR Consent Obtained: Yes Patient identity confirmed: arm band Staffing SUPERVISOR PRODUCTION DEPARTMENT: Cony Poe APRN.SUPERVISOR PRODUCTION DEPARTMENT Performed by: SUPERVISOR PRODUCTION DEPARTMENT Indications and Patient Condition Indications for airway [...] attempts at approach: 1 SIGNATURE: Cony Poe APRN.SUPERVISOR PRODUCTION DEPARTMENT PATIENT NAME: Yasir Montiel DATE: October 26, 2022 TIME: 12:09 PM CSN: [id number]* Diagnosis Closed displaced combined transverse-posterior fracture of right acetabulum with routine healing, subsequent encounter- Primary documented in this encounter [facility] note* Diagnosis Closed displaced combined transverse-posterior fracture of right acetabulum, initial encounter ([facility])- Primary documented in this encounter [facility] note* Diagnosis Closed displaced combined transverse-posterior fracture of right acetabulum with routine healing, subsequent encounter documented in this encounter [facility] for referral (narrative)* Diagnostic Procedure Only (Routine) - Pending Review Specialty Diagnoses / Procedures Referred By Edd marcelino Referred To Contact XR IMAGING Diagnoses Closed displaced combined transverse-posterior fracture of right acetabulum with routine healing, subsequent encounter Procedures XR PELVIS 1V AP RADIOLOGIC EXAMINATION PELVIS 1/2 VIEWS Rachel Funez MD [address] [address] [place] [address] Referral ID Status Reason Start Date Expiration Date Visits Requested Visits Authorized [id number] Pending Review Auto-Generat ed Referral 12/06/2022 01/05/2024 1 1 * Diagnostic Procedure Only (Routine) - Pending Review Specialty Diagnoses / Procedures Referred By Contac t Referred To Contact XR IMAGING Diagnoses Closed displaced combined transverse-posterior fracture of right acetabulum with routine healing, subsequent encounter Procedures XR PELVIS 1V AP RADIOLOGIC EXAMINATION PELVIS 1/2 VIEWS Rachel Funez MD [address] [place] [address] [place] [id number] [place] [address] Referral ID Status Reason Start Date Expiration Date Visits Requested Visits Authorized [id number] Pending Review Auto-Generat ed Referral 12/06/2022 01/03/2024 1 1 [facility] for visit Narrative* Diagnostic Procedure Only (Routine) - Closed Specialty Diagnoses / Procedures Referred By Contac t Referred To Contact XR IMAGING Diagnoses Closed displaced combined transverse-posterior fracture of right acetabulum with routine healing, subsequent encounter Procedures XR PELVIS 1V AP RADIOLOGIC EXAMINATION PELVIS 1/2 VIEWS Rachel Funez MD [address] [place] [address] [place] [id number] [place] [address] Referral ID Status Reason Start Date Expiration Date V isits Requested Visits Authorized [id number] Closed Auto-Generate d Referral 12/06/2022 01/05/2024 1 1 [facility] for visit Narrative* Diagnostic Procedure Only (Routine) - Closed Specialty Diagnoses / Procedures Referred By Contac t Referred To Contact XR IMAGING Diagnoses Closed displaced combined transverse-posterior fracture of right acetabulum with routine healing, subsequent encounter Procedures XR PELVIS 1V AP RADIOLOGIC EXAMINATION PELVIS 1/2 VIEWS Rachel Funez MD [address] [place] [address] [place] [address] [place] [address] Referral ID Status Reason Start Date Expiration Date V isits Requested Visits Authorized [id number] Closed Auto-Generate d Referral 01/12/2023 02/11/2024 1 1 [facility] Diagnostic Procedure Only (Routine) - Closed Specialty Diagnoses / Procedures Referred By Edd t Referred To Contact XR IMAGING Diagnoses Closed displaced combined transverse-posterior fracture of right acetabulum with routine healing, subsequent encounter Procedures XR PELVIS 1V AP RADIOLOGIC EXAMINATION PELVIS 1/2 VIEWS Rachel Funez MD [address] [place] [address] [place] [id number] Referral ID Status Reason Start Date Expiration Date V isits Requested Visits Authorized [id number] Closed Auto-Generate d Referral 03/10/2023 03/08/2024 1 1 [facility] Summary Purpose Family History No Family [...] or prosecute any alcohol or drug abuse patient.[facility] the event this information is protected by the Federal Confidentiality of Alcohol and Drug Abuse Patient Records regulations: The Federal rules restrict any use of the information to criminally investigate or prosecute any alcohol or drug abuse patient.[facility] the event this information is protected by the Federal Confidentiality of Alcohol and Drug Abuse Patient Records regulations: The Federal rules restrict any use of the information to criminally investigate or prosecute any alcohol or drug abuse patient.[facility] the event this information is protected by the Federal Confidentiality of Alcohol and Drug Abuse Patient Records regulations: The Federal rules restrict any use of the information to criminally investigate or prosecute any alcohol or drug abuse patient.[facility] the event this information is protected by the Federal Confidentiality of Alcohol and Drug Abuse Patient Records regulations: The Federal rules restrict any use of the information to criminally investigate or prosecute any alcohol or drug abuse patient.[facility] the event this information is protected by the Federal Confidentiality of Alcohol and Drug Abuse Patient Records regulations: The Federal rules restrict any use of the information to criminally investigate or prosecute any alcohol or drug abuse patient.[facility] the event this information is protected by the Federal Confidentiality of Alcohol and Drug Abuse Patient Records regulations: The Federal rules restrict any use of the information to criminally investigate or prosecute any alcohol or drug abuse patient.[facility] the event this information is protected by the Federal Confidentiality of Alcohol and Drug Abuse Patient Records regulations: The Federal rules restrict any use of the information to criminally investigate or prosecute any alcohol or drug abuse patient.[facility] the event this information is protected by the Federal Confidentiality of Alcohol and Drug Abuse Patient Records regulations: The Federal rules restrict any use of the information to criminally investigate or prosecute any alcohol or drug abuse patient.[facility] Reason for Visit (unrecogniz ed section and content) Reason Comments Patient Update Reason Comments Established Patient Follow Up Pain Post Op Reason Comments Orders Care Teams (unrecognized sec tion and content) Dub Room Engineer Relationship Specialty Start Date End Date Jeff Thomas MD [address] [place] [id number] PCP - General Family Medicine 10/27/22 Dub Room Engineer Relationship Specialty Start Date End Date Jeff Thomas MD [address] [facility] [address] [place] [address] PCP - General Family [facility] 10/27/22 Dub Room Engineer Relationship Specialty Start Date End Date Jeff Thomas MD [address] [facility] [address] [place] [address] PCP - General Family [facility] 10/27/22 Dub Room Engineer Relationship Specialty Start Date End Date Jeff Thomas MD [address] [facility] [address] [place] [address] PCP - [facility] 10/27/22 Dub Room Engineer Relationship Specialty Start Date End Date Jeff Thomas MD [address] [facility] [address] [place] [address] PCP - General [facility] Medicine 10/27/22 Dub Room Engineer Relationship Specialty Start Date End Date Jeff Thomas MD [address] [facility] [address] [place] [address] PCP - General [facility] 10/27/22 Dub Room Engineer Relationship Specialty Start Date End Date Jeff Thomas MD [address] [facility] [address] [place] [address] PCP - General [facility] 10/27/22 (unrecognized sect ion and content) No Status Records FoundNo Status Records Found INFORMATION SOURCE (unrecogn ized section and content) DATE CREATED AUTHOR AUTHOR'S ORGANIZ ATION 03/19/2023 [facility] FOR RECORDS PERTAINING TO PATIENTS [...] BE BASED ON THE PRIMARY CLINICAL RECORDS. [employer] [facility]. provides no warranty or guarantee of the accuracy or completeness of information in this document.
== END | disposition home or self-care (01) ==
LOC: MTLAB 16:34
PROVIDERS: PCP Family Medicine; Referring Provider Family Medicine; Visit Provider Family Medicine
DX: R73.9 Hyperglycemia, unspecified (principal)
CPT/HCPCS: 36415; 80048; 83036

== ENCOUNTER → 2023-07-10 | Outpatient (CLI) | payer MEDICARE, OTHER, SELFPAY ==
--- NOTE | 2023-07-10 14:44 | CT_ITS ---
PROCEDURE: CT RIGHT LOWER EXTREMITY WITHOUT CONTRAST REASON FOR EXAM: Male, 73 years old. Preoperative planning for the [employer] Robotic hip surgery. History of central acetabular fracture.. TECHNIQUE: Transaxial CT of the hip, knee and ankle were obtained. Coronal and sagittal reconstruction images of the knee were provided. Individualized dose optimization techniques were used for this CT. COMPARISON: None. FINDINGS: Osteopenia. Standard protocol for the preoperative planning for the [employer] robotic hip surgery was performed. 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 Medial right knee hemiarthroplasty. Left total knee arthroplasty. CT/Extremity Lower without Contra IMPRESSION: Preoperative [employer] Robotic hip surgical CT evaluation with findings as described above. Electronically Signed: Yasir Herron MD at 15:05 EDT ,
== END | disposition home or self-care (01) ==
LOC: CT 14:42
PROVIDERS: PCP Family Medicine; Referring Provider Specialist; Visit Provider Specialist
DX: S32.46 Associated transverse-posterior fracture of acetabulum (principal); M16.51 Unilateral post-traumatic osteoarthritis, right hip
CPT/HCPCS: 73700

== ENCOUNTER → 2023-08-14 | Outpatient (CLI) | payer MEDICARE, OTHER, SELFPAY ==
[2023-08-14 10:06] LABS: Absolute Lymphocyte Count 1.86 X10^3/uL (0.83-4.51); Absolute Neutrophil Count 6.7 X10^3/uL (2.0-7.7); Basophil# 0.05 X10^3/uL; Basophil% 0.5 % (0-1); Eosinophil# 0.27 X10^3/uL; Eosinophils% 2.8 % (0-5); Hematocrit 38.5 % (40-54); Hemoglobin 12.8 g/dL (13.0-16.5); Lymphocyte # 1.86 X10^3/ul (0.83-4.51); Lymphocyte % 19.2 % (19-41); Mean Corp Hgb Conc 33.2 g/dL (32-36); Mean Corpuscular Volume 96.3 fL (80-94); Mean Platelet Vol. 8.9 fl (6.2-12.0); Monocyte# 0.83 X10^3/uL; Monocyte% 8.6 % (0-10); NRBC Flagged by Analyzer 0 % (0-5); Neutrophil # 6.66 X10^3/uL (2.7-7.7); Neutrophil % 68.6 % (47-70); Platelet Count 318 K/mm3 (150-450); RBC Distribution Width CV 12.4 % (11.6-14.6); RBC Distribution Width SD 43.4 fl (35.1-43.9); White Blood Count 9.7 K/mm3 (4.4-11.0)
[2023-08-14 11:31] LABS: ALB/GLOB Ratio 1.2 RATIO (0.9-2.4); AST(SGOT) 23 U/L (15-37); Alanine Aminotransfer ALT/SGPT 22 U/L (16-61); Alkaline Phosphatase 102 U/L (45-117); Anion Gap 5 (5-15); BUN 10 mg/dL (7-18); BUN/Creat Ratio 11.3 RATIO (10-20); Calcium,Total 10.2 mg/dL (8.5-10.1); Chloride 105 mmol/L (98-107); Creatinine, Serum 0.88 mg/dL (0.70-1.30); EST Glomerular Filtration Rate 90 mL/min (>60); Est Glom Filt Rate - Afr Amer 108 mL/min (>60); Globulin 3.2 g/dL (2.2-4.2); Glucose 134 mg/dL (74-106); Potassium 4.4 mmol/L (3.5-5.1); Protein, Total 7.2 g/dL (6.4-8.2); Sodium Level 136 mmol/L (136-145); Thyroid Stim Hormone (TSH) 1.26 uIU/mL (0.358-3.74)
[2023-08-14 14:56] LABS: Hemoglobin A1c 5.4 % (3.8-5.6)
== END | disposition home or self-care (01) ==
PROVIDERS: PCP Family Medicine; Referring Provider Family Medicine; Visit Provider Family Medicine
DX: Z01.818 Encounter for other preprocedural examination (principal)
CPT/HCPCS: 36415; 80053; 83036; 84443; 85025

== ENCOUNTER → 2024-03-25 | Outpatient (CLI) | payer MEDICARE, OTHER, SELFPAY ==
[2024-03-25 10:42] LABS: Anion Gap 7 (5-15); BUN 8 mg/dL (7-18); Calcium,Total 9.7 mg/dL (8.5-10.1); Chloride 107 mmol/L (98-107); EST Glomerular Filtration Rate 100 mL/min (>60); Est Glom Filt Rate - Afr Amer 121 mL/min (>60); Glucose 98 mg/dL (74-106); PSA,Total - Annual Screen 2.65 ng/mL (0.00-4.00); Potassium 4.2 mmol/L (3.5-5.1); Sodium Level 140 mmol/L (136-145)
[2024-03-27 15:34] LABS: Cholesterol 153 mg/dL (200); High Density Lipoprotein 71 mg/dL; Triglycerides 216 mg/dL; Very Low Density Lipoprotein 43 mg/dL (5-40)
== END | disposition home or self-care (01) ==
LOC: MTLAB 09:18
PROVIDERS: PCP Family Medicine; Referring Provider Family Medicine; Visit Provider Family Medicine
DX: E78.5 Hyperlipidemia, unspecified (principal); Z12.5 Encounter for screening for malignant neoplasm of prostate
CPT/HCPCS: 36415; 80048; 80061; 84153; G0103

== ENCOUNTER 2024-05-27 12:04 | Emergency (ER) | payer MEDICARE, OTHER, SELFPAY ==
[2024-05-27 12:06] VITALS: BP 134/78; PULSE 64; RESP 18; TEMP 36.9; O2SAT 98; BMI 21.9
--- NOTE | 2024-05-27 13:44 | EX.ED.GENINJ ---
HPI History of Present Illness Chief Complaint: Laceration Informant: patient Narrative Narrative: 74-year-old male presenting with left lower extremity skin tear/laceration. Patient was getting into his vehicle and slipped on ice. He fell injuring his left lower extremity. He has been able to ambulate since the fall. He did not hit his head or lose consciousness. He is not on anticoagulants. Tetanus Immunization: <5 years Prior similar symptoms: Yes Recent Illness/Hospitalization: No PFSH PFSH Medical History GERD (gastroesophageal reflux disease) Psoriasis Hyperlipidemia Hypertension Osteogenesis imperfecta Home Medications ?Medication ?Instructions ?Recorded ?Last Taken ?Type atorvastatin 20 mg tablet 20 mg PO QHS 05/18/15 05/18/15 History 20 MG esomeprazole magnesium 40 mg 40 mg PO DAILY 05/18/15 01/22/20 History capsule,delayed release (Nexium) losartan 25 mg tablet 100 mg PO DAILY 05/18/15 01/22/20 History trazodone 50 mg tablet 50 mg PO QHS 05/18/15 05/18/15 History 50 MG aspirin 81 mg tablet,delayed 81 mg PO DAILY@0800 01/02/20 01/19/20 History release semaglutide 14 mg tablet 20 mg PO DAILY psoriasis 10/25/22 Unknown History hydrocodone-acetaminophen 5-325mg 1 tab PO Q6H PRN PRN Pain 3 days 05/27/24 Unknown Rx 5mg-325mg #10 TABLETS Allergy/AdvReac Type Severity Reaction Status Date / Time Iodine and Iodide Containing Allergy Nausea/Vom/ Verified 05/27/24 12:05 Produc Diarrhea codeine AdvReac Vomiting Verified 05/27/24 12:05 shellfish derived AdvReac Nausea/Vom/ Verified 05/27/24 12:05 Diarrhea shrimp AdvReac Nausea/Vom/ Verified 05/27/24 12:05 Diarrhea Social History Smoking Status: Never smoker ROS ROS ED Constitutional Constitutional ED: Denies fever(s) Eyes Eyes: Denies change in vision ENT ENT ED: Denies rhinorrhea or sore throat Cardiovascular Cardiovascular: Denies chest pain or palpitations Respiratory/Chest Respiratory/Chest: Denies cough or dyspnea Gastrointestinal Gastrointestinal: Denies abdominal pain, diarrhea, nausea or vomiting Genitourinary Genitourinary ED: Denies dysuria Musculoskeletal Musculoskeletal: Reports other Details: Left lower extremity laceration ; Denies myalgias Integumentary Denies rash Neurologic Neurologic: Denies headache(s) Psychiatric Psychiatric: Denies suicidal thoughts EXAM Physical Exam Const Vital Signs: 05/27/24 12:06 Temperature 98.4 F Temperature Source Oral Pulse Rate 64 Respiratory Rate 18 Blood Pressure 134/78 H Blood Pressure Mean 96 Pulse Ox 98 Oxygen Delivery Method Room Air Positive well nourished and well developed General Appearance ED: well developed HEENT Reports normocephalic and head/scalp atraumatic Eyes PERRL and EOMs intact bilaterally Neck supple General: Negative for tenderness Chest Wall inspection of chest normal Resp normal respiratory effort and clear to auscultation bilaterally Cardio regular rate and regular rhythm Extremity Extremity Narrative: 6 cm left lower extremity laceration/skin tear. No bony tenderness. Normal distal pulses. Neuro oriented x3 Sensorium / Orientation: alert Psych mental status grossly normal MDM MDM MDM Narrative Medical decision making narrative: 74-year-old male presenting with left lower extremity laceration/skin tear. Patient declined x-rays. He states he is ambulating without difficulty and has no pain. Tetanus is up-to-date. Wound was irrigated. Anesthetized with lidocaine. 3, 5-0 simple sutures were placed. Remainder of skin tear is not amenable to suturing. Patient was advised wound care instructions. Advised to follow-up with primary care physician. Advised return to ED if worsening complaints. History & Record Review Discussion w/independent historian: Patient and Family Discharge Plan Triage Chief Complaint: Laceration ED Provider: Ludmila Petty Dx/Rx/DC Orders Clinical Impression: Laceration of left leg, Skin tear Instructions: ED Laceration Extremity Prescriptions: New hydrocodone-acetaminophen 5-325 mg tablet 1 tab PO Q6H PRN PRN (Reason: Pain) 3 Days Qty: 10 0RF No Action atorvastatin 20 MG tablet 20 mg PO QHS trazodone 50 MG tablet 50 mg PO QHS esomeprazole magnesium [Nexium] 40 MG capsule 40 mg PO DAILY losartan 25 MG tablet 100 mg PO DAILY aspirin 81 MG tablet 81 mg PO DAILY@0800 semaglutide 14 mg tablet 20 mg PO DAILY Primary Care Provider: Jeff Worley Referrals: Jeff Worley MD [Primary Care Provider] - Print Language: Grenadian Disposition Disposition: Home, Self Care
[2024-05-27 14:08] VITALS: BP 134/78; PULSE 68; RESP 16; TEMP 37.1; O2SAT 99
== END 2024-05-27 14:09 | disposition home or self-care (01) ==
PROVIDERS: Emergency Provider Emergency Medicine; PCP Family Medicine; Visit Provider Emergency Medicine
DX: S81.812A Laceration without foreign body, left lower leg, initial encounter (principal); W00.0XXA Fall on same level due to ice and snow, initial encounter; E78.5 Hyperlipidemia, unspecified; I10 Essential (primary) hypertension; K21.9 Gastro-esophageal reflux disease without esophagitis
CPT/HCPCS: 12002; 99282; A4216

== ENCOUNTER → 2025-02-06 | Outpatient (CLI) | payer MEDICARE, OTHER, SELFPAY ==
--- NOTE | 2025-02-06 16:52 | RAD_ITS ---
RAD/L/S Spine Min 4 Views
== END | disposition home or self-care (01) ==
LOC: MTRAD 16:52
PROVIDERS: PCP Family Medicine; Referring Provider Family Medicine; Visit Provider Family Medicine
DX: M54.9 Dorsalgia, unspecified (principal)
CPT/HCPCS: 72110